=== PATIENT | female | born 2000 | race Caucasian/White ===

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

== ENCOUNTER 2021-01-29 11:25 | Emergency (ER) | payer OTHER, SELFPAY ==
[~2021-01-29] VITALS: Ht 177.8 cm; Wt 140.5 kg
[2021-01-29] MEDS ORDERED: NS 1,000 ML IV ONE ×2 (13:00→14:20)
[2021-01-29 13:41] LABS: BASO % 0.6 % (0.0-1.0); EOS # 0.1 10^3/uL (0.0-0.5); EOS % 1.2 % (0.0-3.0); HEMOGLOBIN 14.1 g/dl (12.0-15.5); LYMPH # 1.8 10^3/uL (1.5-5.0); MEAN CORPUSCULAR HEMOGLOBIN 30.1 pg (27.0-33.0); MEAN CORPUSCULAR HGB CONC 32.8 g/dl (32.0-36.5); MEAN CORPUSCULAR VOLUME 91.9 fl (80.0-96.0); MONO # 0.6 10^3/uL (0.0-0.8); MONO % 9.6 % (2.0-8.0); NEUTROPHILS % 61.3 % (36.0-66.0); PLATELET COUNT, AUTOMATED 253 10^3/uL (150-450); RED BLOOD COUNT 4.68 10^6/uL (4.00-5.40); WHITE BLOOD COUNT 6.5 10^3/uL (4.0-10.0)
[2021-01-29 14:04] LABS: AMPHETAMINES LEVEL URINE NEGATIVE (NEGATIVE); BARBITURATES URINE NEGATIVE (NEGATIVE); BENZODIAZEPINES URINE NEGATIVE (NEGATIVE); CANNABINOIDS URINE NEGATIVE (NEGATIVE); COCAINE METABOLITE URINE NEGATIVE (NEGATIVE); METHADONE URINE NEGATIVE (NEGATIVE); OPIATES URINE NEGATIVE (NEGATIVE); PHENCYCLIDINE URINE NEGATIVE (NEGATIVE)
[2021-01-29 14:11] LABS: HCG, SERUM QUALITATIVE NEGATIVE (NEGATIVE)
[2021-01-29 14:13] LABS: BLOOD UREA NITROGEN 13 MG/DL (7-18); CALCIUM LEVEL 8.8 MG/DL (8.5-10.1); CARBON DIOXIDE LEVEL 27 MEQ/L (21-32); CHLORIDE LEVEL 110 MEQ/L (98-107); CREATININE FOR GFR 0.61 MG/DL (0.55-1.30); FREE T4 0.92 NG/DL (0.78-1.33); GLUCOSE, FASTING 87 MG/DL (70-100); SODIUM LEVEL 139 MEQ/L (136-145)
--- NOTE | 2021-01-29 14:35 | REPVR ---
PROCEDURE INFORMATION: Exam: CT Head Without Contrast Exam date and time: 01/29/2021 2:17 PM Age: 20 years old Clinical indication: Dizziness; Additional info: Dizziness, balance off TECHNIQUE: Imaging protocol: Computed tomography of the head without contrast. Radiation optimization: All CT scans at this facility use at least one of these dose optimization techniques: automated exposure control; mA and/or kV adjustment per patient size (includes targeted exams where dose is matched to clinical indication); or iterative reconstruction. COMPARISON: No relevant prior studies available. FINDINGS: Brain: No acute intracranial hemorrhage, cerebral edema, or midline shift. Cerebral ventricles: No hydrocephalus. Bones/joints: No acute fracture. Paranasal sinuses: There is a mucus retention cyst or polyp within the left maxillary sinus. Mastoid air cells: The mastoid air cells are clear. Orbital cavity: Unremarkable as visualized. Soft tissues: Unremarkable. IMPRESSION: No acute intracranial abnormality. Electronically signed by: Reinaldo Martel On 01/29/2021 14:34:50 PM
[2021-01-29 15:47] VITALS: BP 104/58
--- NOTE | 2021-01-30 07:38 | ECGEPIP ---
[facility] - ED Test Date: 2021-01-29 Pat Name: HECTOR FREDERICK Department: Room: - Gender: Female Service Girl: RS : 2000 Requested By: COLE Aguirre PA-C Order Number: [id number] Reading MD: Osmani Jang Measurements Intervals [place] Rate: 45 P: 40 AK: 152 QRS: 69 QRSD: 88 T: 35 QT: 454 QTc: 392 Interpretive Statements Sinus bradycardia BENIGN EARLY REPOLARIZATION NO PRIORS FOR COMPARISON Electronically Signed on 01-30-2021 7:38:43 EDT by Osmani Jang
== END 2021-01-29 15:50 | disposition home or self-care (01) ==
LOC: EDBD 11:25 → M ED 11:25
DX: E86.0 Dehydration (principal); R42 Dizziness and giddiness; R00.1 Bradycardia, unspecified

== ENCOUNTER 2021-07-19 23:05 | Emergency (ER) | payer SELFPAY ==
[~2021-07-19] VITALS: Ht 180.3 cm; Wt 109.1 kg
[~2021-07-19 23:05] MED LIST changes: +OMEP40CA4 PO; -OMEP40CA97 PO
--- OUTSIDE RECORDS SUMMARY | 2021-07-19 23:15 | CCD ---
Author Author [facility] Organization [facility] Address Unknown Phone Unavailable Care Team Providers Care Digital Cartographic Technician Name Role Phone NO, PCP Unavailable Unavailable KEYUR, Pat ENCARNACION MD Unavailable Unavailable KEYUR, Pat ENCARNACION MD Unavailable Unavailable KEYUR, L SHASHANK MD Unavailable Unavailable KEYUR, L SHASHANK MD Unavailable Unavailable KEYUR, L SHASHANK MD Unavailable Unavailable KEYUR, L SHASHANK MD Unavailable Unavailable KEYUR, L SHASHANK MD Unavailable Unavailable KEYUR, L SHASHANK MD Unavailable Unavailable KEYUR, L SHASHANK MD Unavailable Unavailable KEYUR, L SHASHANK MD Unavailable Unavailable KEYUR, L SHASHANK MD Unavailable Unavailable KEYUR, L SHASHANK MD Unavailable Unavailable KEYUR, L SHASHANK MD Unavailable Unavailable KEYUR, L SHASHANK MD Unavailable Unavailable KEYUR, L SHASHANK MD Unavailable Unavailable KEYUR, L SHASHANK MD Unavailable Unavailable KEYUR, L SHASHANK MD Unavailable Unavailable KEYUR, L SHASHANK MD Unavailable Unavailable KEYUR, L SHASHANK MD Unavailable Unavailable KEYUR, L SHASHANK MD Unavailable Unavailable Re-disclosure Warning The records that you are about to access may contain information from federally-assisted alcohol or drug abuse programs. If such information is present, then the following federally mandated warning applies: This information has been disclosed to you from records protected by federal confidentiality rules (42 CFR part 2). The federal rules prohibit you from making any further disclosure of this information unless further disclosure is expressly permitted by the written consent of the person to whom it pertains or as otherwise permitted by 42 CFR part 2. A general authorization for the release of medical or other information is NOT sufficient for this purpose. The Federal rules restrict any use of the information to criminally investigate or prosecute any alcohol or drug abuse patient.The records that you are about to access may contain highly sensitive health information, the redisclosure of which is protected by Article 27-F of the [place] Public Health law. If you continue you may have access to information: Regarding HIV / AIDS; Provided by facilities licensed or operated by the [place] Office of Mental Health; or Provided by the [place] Office for People With Developmental Disabilities. If such information is present, then the following [place] mandated warning applies: This information has been disclosed to you from confidential records which are protected by state law. State law prohibits you from making any further disclosure of this information without the specific written consent of the person to whom it pertains, or as otherwise permitted by law. Any unauthorized further disclosure in violation of state law may result in a fine or mcc sentence or both. A general authorization for the release of medical or other information is NOT sufficient authorization for further disc losure. Allergies and Adverse Reactions Type Description Substance Reaction Status Data Source(s ) No Known Drug Allergies No Known Drug Allergies [facility] Encounters Encounter Providers Location Date Indications Data Source(s ) Emergency Attender: SHASHANK BAER MDConsultant: PCP NO 05/23/2021 07:36:00 PM EDT - 05/24/2021 02:48:00 AM EDT [facility] Patient discharged. Medications No Information Insurance Providers Payer name Policy type / Coverage type Policy ID Covered democrat ID Covered democrat's relationship to knott Policy Knott Plan Information Medicaid S [id number] S [id number] Managed Care - Community Plan [facility] P [id number] S [id number] [facility] Care - [facility] Plan [facility] P [id number] S [id number] [place] [id number] SP [id number] [facility] [id number] S [id number] [facility] [id number] SP [id number] [facility] Care - [facility] S UNAVAILABLE S UNAVAILABLE PRIVATE PAY [id number] SELF PAY ONLY [id number] SP [id number] MARIA A [facility] [place] [id number] SP [id number] Problems, Conditions, and Diagnoses Code Display Name Description Problem Type Effective Dates Data Source(s) [id number] Nicotine dependence, other tobacco produ ct, uncomplicated Nicotine dependence, other tobacco product, uncomplicated Diagnosis 05/23 07:36:00 PM EDT [facility] [id number] Migraine, unspecified, not intractable, without status migrainosus Migraine, unspecified, not intractable, without status migrainosus Diagnosis 05/23/2021 07:36:00 PM EDT [facility] R519 Headache, unspecified Headache, unspecified Diagnosis 05/23/2021 07:36:00 PM [facility] Surgeries/Procedures No Information Results ID Date Data Source [id number] [facility] [address] [place] [address] PHONE: [phone] FAX: [phone] Name .................. : OTONIEL Szymanski Acct Number.................. : [id number] ROOM. ................. : TR-08 MR Number ................... : [id number] Stay type ............. : E/R Discharge Date......... ... : 05/24/21 Admit Date ....... .. : 05/23/21 Admit Phys .................... : COONEYNORM Date of ....... : 2000 Family Phys ................... : NO PCP Phone .................. : [phone] Age ................................ : 20 Film# .................. .:[id number] Sex ................................. : F Unsigned transcriptions are preliminary reports and do not represent a medical or legal document CHEST PORTABLE [id number] COMPLETE:05/24/21 04:25 MWB 53185 Reason(s): Congestion PORTABLE CHEST SINGLE VIEW 12:25 AM HISTORY: Congestion COMPARISON: None. FINDINGS: Mediastinal and hilar structures are normal. Cardiac silhouette is unremarkable. Lungs are clear. No pulmonary edema. No pleural effusions or pneumothorax. IMPRESSION: Normal exam. Electronically Reviewed and Signed By Jeff Jacobs MD , 05/25/21 15:42, SCB Transcribe Initials: SSR, Transcribe Date: 05/24/21 08:00, Dictation Date: Copy for: EMERGENCY DEPT via modem Copy for: 710 MED REC DISCHARGED Page 1 of 1 Name Value Range Interpretation Code Description Data Deedee rce(s) Supporting Document(s) ID Date Data Source [id number] 05/25/2021 03:41:00 [place] [address] PHONE: [phone] FAX: [phone] Name .................. : OTONIEL Szymanski Acct Number.................. : [id number] ROOM. ................. : TR-08 MR Number ................... : [id number] Stay type ............. : E/R Discharge Date......... ... : Admit Date ......... : 05/23/21 Admit Phys .................... : KEYURNORM Date of ....... : 2000 Family Phys ................... : NO PCP Phone .................. : [phone] Age ................................ : 20 Film# .................. .:[id number] Sex ................................. : F Unsigned transcriptions are preliminary reports and do not represent a medical or legal document CT HEAD W/O CONTRAST [id number] COMPLETE:05/23/21 19:48 Reason(s): Headache CT BRAIN WITHOUT IV CONTRAST INDICATION: Headache COMPARISON: None CONTRAST: None Preliminary report for this exam was provided by [facility]. One or more of the following dose reduction techniques were utilized in effectively lowering the radiation dose for this examination: Automated Exposure Control, Adjustment of the mA and/or kV according to patient size, or Iterative Reconstruction. FINDINGS: Ventricles and sulci are normal in appearance. Borja white differentiation is intact. No extra-axial collection or intracranial hemorrhage. No indication of acute or prior ischemic CVA. No mass or mass effect. Calvarium and skull base are within normal limits. To the extent included sinuses are clear. IMPRESSION: Negative study. Electronically Reviewed and Signed By Jeff Jacobs MD , 05/25/21 15:41, SCB Transcribe Initials: CHERRI , Transcribe Date: 05/23/21 23:01, Dictation Date: Page 1 of 2 [facility] [address] [place] [id number] PHONE: [phone] FAX: [phone] Name .................. : OTONIEL Szymanski Acct Number.................. : [id number] ROOM. ................. : TR-08 MR Number ................... : [id number] Stay type ............. : E/R Discharge Date......... ... : Admit Date ......... : 05/23/21 Admit Phys .................... : COONEYNORM Date of ....... : 2000 Family Phys ................... : NO PCP Phone .................. : [phone] Age ................................ : 20 Film# .................. .:[id number] Sex ................................. : F Unsigned transcriptions are preliminary reports and do not represent a medical or legal document CT HEAD W/O CONTRAST 98131 COMPLETE:05/23/21 19:48 Reason(s): Headache Copy for: EMERGENCY DEPT via mode Copy for: 710 MED REC DISCHARGED Page 2 of 2 Name Value Range Interpretation Code Description Data Deedee rce(s) Supporting Document(s) ID Date Data Source [id number] 05/23/2021 07:36:00 PM EDT [facility] 1 OrderSheet [facility] Emergency Department [address] [place] [address] Phone #: ext- [phone] 05/23/2021 19:35 Patient: HECTOR FREDERICK Sex: F : 2000 Age: 20yWEIGHT:158.7 kg (S) HEIGHT:71 inches (S) BMI:48.8ALLERGIES: No Known Drug AllergyCHIEF COMPLAINT: headacheDIAGNOSIS: MigraineLAB ORDERSOrder Description Priority Entered Acknowledged InitialedCBC w Diff STAT 19:48 05/23/2021 20:00 Shashank Gonzalez MD; Rey RNCMP STAT 19:48 05/23/2021 20:00 Shashank Gonzalez MD; Rey QUINONESHCG Serum Qual STAT 19:48 05/23/2021 20:00 Shashank Gonzalez MD; Rey RNUrinalysis (Clean STAT 19:48 05/23/2021 Ack'd: 22:29Catch) Shashank Baer MD; Laurie Ballard R.N.Magnesium STAT 19:48 05/23/2021 20:00 Shashank Gonzalez MD; Rey QUINONESUrine Drug Screen STAT 23:31 05/23/2021 00:07 05/24/2021 Shashank Baer MD; Laurie Ballard R.N.ETOH STAT 23:31 05/23/2021 Ack'd: 00:07 00:08 05/24/2021 Shashank Baer MD; 05/24/2021 Laurie Blalard Laura R.N. RHonorioNHonorioDIAGNOSTIC STUDY ORDERSOrder Description Priority Entered Acknowledged InitialedCT Head W/O Cont STAT 19:48 05/23/2021 20:00 [place](Oxygen?(No)) Shashank Baer MD; Rye QUINONES Reason for Study: HeadacheChest Portable 1 STAT 00:03 05/24/2021 00:07 Crystal Ballard Norma MD; Laurie Witt(Oxygen?(No)) Reason for Study: Congestion 2 OrderSheet [facility] Emergency Department [address] [place] [address] Phone #: ext- [phone] 05/23/2021 19:35 [id number] Sex[facility] : 2000 Age: 20yMEDICATION/IV/DRIP/FLUID ORDERSOrder Description Priority Entered Acknowledged InitialedIV NS 1000 mL 19:50 05/23/2021 20:12 GlenroyBolus : Bolus 1000 Shashank Baer MD; Rey RNmL (X1)Zofran IVP 4 mg 19:50 05/23/2021 20:12 Shashank Gonzalez MD; Rey RNToradol IVP 30 mg 19:50 05/23/2021 20:13 [place](NOW x1) Shashank Baer MD; Rey RNBenadryl IVP 25 mg 19:50 05/23 20:14 Shashank Gonzalez MD; Rey RNReglan IVP 10 mg 19:50 05/23/2021 20:13 Shashank Gonzalez MD; Rey RNDexamethasone 19:50 05/23/2021 20:13 GlenroyIVP 10 mg (NOW Shashank Baer MD; Rey RNx1)IV NS 1000 mL 21:58 05/23/2021 22:10 Joanne,Bolus : Bolus 1000 Shashank Baer MD; Myriam WittmL (X1)IV NS 1000 mL 22:28 05/23/2021 Ack'd: 22:29 00:17 05/24/2021olus : Bolus 1000 Shashank Baer MD; Laurie Ballard LauramL (X1) R.N. R.NHonorioGENERAL ORDERSOrder Description Priority Entered Acknowledged Initialed[Electronically signed by Myriam Rubio R.N. (02:48 05/24/2021)][Electronically signed by Shashank Baer MD (02:48 05/24/2021)][Electronically locked by Myriam Rubio R.N. (02:48 05/24/2021)] Name Value Range Interpretation Code Description Data Deedee rce(s) Supporting Document(s) ID Date Data Source [id number] 05/23/2021 07:36:00 PM EDT [facility] 1 Medication Reconciliation Report [facility] Emergency Department [address] [place] [address] Phone #: ext- [phone] 05/23/2021 19:35 Patient: HECTOR FREDERICK Sex: F : 2000 Age: 20yWeight: 158.7 kgHeight/Length: 71 in.BMI: 48.8ALLERGIES: No Known Drug AllergyThe patient's Home Medications are listed below:CONTINUE TAKING THE FOLLOWING MEDICATIONS: Omeprazole Oral, unknown doseThe source(s) of the original Home Medication information:Not obtained.The following Medications were given to the patient in the Emergency Department:NS [IV] IV Fluids bolus 0, then 1000 mL/hr, administered: 20:12 05/23/2021Zofran [IVP] IVP 4 mg, administered: 20:05/23/2021Toradol [IVP] IVP 30 mg, administered: 20:1Reglan [IVP] IVP 10 mg, administered: 20:1Dexamethasone [IVP] IVP 10 mg, administered: 20:1Benadryl [IVP] IVP 25 mg, admini stered: 20:14 05/23/2021NS [IV] IV Fluids bolus 0, then 1000 mL/hr, administered: 22:05/23/2021NS [IV] IV Fluids bolus 0, then 1000 mL/hr, administered: 22:05/23/2021odium Chloride [IV] IV Fluids bolus 0, then 1000 mL/hr, administered: 00:17 05/24/2021The following Medications were prescribed to the patient:None. Name Value Range Interpretation Code Description Data Deedee rce(s) Supporting Document(s) ID Date Data Source [id number] 05/23/2021 07:36:00 PM EDT [facility] 1 Medication Administration Record [facility] Emergency Department [address] [place] [address] Phone #: ext- [phone] 05/23/2021 19:35 Patient: HECTOR FREDERICK Sex: F : 2000 Age: 20yWeight: 158.7 kgHeight/Length: 71 inBMI: 48.8ALLERGIES: No Known Drug Allergy Date/Time Medication Administered Medication OrderedStart NS [IV] IV NS 1000 mL Bolus : Bolus [id number]:12 05/23/2021 Dose: IV Fluids mL (X1)Glenroy Le RN Rate: 1000 mL/hr over 1 hour(s)---- Dispensed: 1000 mL bagStop Site: #1 left AC22:02 1PChari Regalado NS [IV] IV NS 1000 mL Bolus : Bolus [id number]:02 05/23/2021 Dose: IV Fluids mL (X1)Glenroy Le RN Rate: 1000 mL/hr over 1 hour(s)---- Dispensed: 1000 mL bagStop Site: #1 left AC23:47 1LMyriam alegre R.N.Given ZOFRAN [IVP] (ONDANSETRON HCL) Zofran IVP 4 mg20:12 05/23/2021 Dose: 4 mg IVPPtal Le RN Site: #1 left ACGiven TORADOL [IVP] (KETOROLAC Toradol IVP 30 mg (NOW x1)20:13 05/23/2021 TROMETHAMINE)Glenroy Le RN Dose: 30 mg IVP Site: #1 left ACGiven BENADRYL [IVP] (DIPHENHYDRAMINE Benadryl IVP 25 mg20:14 05/23/2021 HCL)Glenroy Le RN Dose: 25 mg IVP Site: #1 left ACGiven REGLAN [IVP] (METOCLOPRAMIDE Reglan IVP 10 mg20:13 05/23/2021 HCL)Glenroy Le RN Dose: 10 mg IVP Site: #1 left ACGiven DEXAMETHASONE [IVP] Dexamethasone IVP 10 mg (NOW20:13 05/23/2021 Dose: 10 mg IVP x1)Glenroy Le RN Site: #1 left ACStart NS [IV] IV NS 1000 mL Bolus : Bolus [id number]:10 05/23/2021 Dose: IV Fluids mL (X1)Myriam Rubio RNilesh Rate: 1000 mL/hr over 1 hour(s)---- Dispensed: 1000 mL bagStop Site: #1 left AC00:16 05/24/2021Laurie Ballard R.N.Start SODIUM CHLORIDE [IV] IV NS 1000 mL Bolus : Bolus [id number]:17 05/24/2021 Dose: IV Fluids mL (X1)Laurie Ballard R.N. Rate: 1000 mL/hr over 1 hour(s)---- Dispensed: 1000 mL bagStop Site: #1 left AC 2 Medication Administration Record [facility] Emergency Department [address] [place] [address] Phone #: ext- [phone] 05/23/2021 19:35 Patient: HECTOR FREDERICK Sex: F : 2000 Age: 20y01:24 1LofMyriam barr R.N. Name Value Range Interpretation Code Description Data Deedee rce(s) Supporting Document(s) ID Date Data Source [id number] 05/23/2021 07:36:00 PM EDT [facility] 1 General Instructions [facility] Emergency Department [address] [place] [address] Phone #: ext- [phone] 05/23/2021 19:35 Patient: HECTOR FREDERICK Sex: F : 2000 Age: 20yAcute migraine headache.INSTRUCTIONSDo not work for two days.(return if worse or any new symptoms. Take all medications as previously instructed. You may taketylenol and motrin for pain.).Warnings: Further evaluation is necessary.GENERAL WARNINGS: Return or contact your physician immediately if your condition worsens orchanges unexpectedly, if not improving as expected, or if other problems arise.Your Current Medications: Your current home medications have been reviewed.CONTINUE TAKING THE FOLLOWING MEDICATIONS:Omeprazole Oral : unknown dose.Follow-up:Follow up with your doctor Thursday even if well. Call for an appointment. Reason for referral: evaluation.Summary of care provided to patient via paper.Understanding of the discharge instructions verbalized by patient. ADDITIONAL INFORMATIONMigraine HeadacheA migraine headache is an often severe type of headache. It's different from other types ofheadaches in that symptoms other than pain occur with the it. For instance, a classic migraineheadache means visual symptoms (or aura) such as flashes of light, blind spots or other visionchanges, warns you a headache is coming on. Nausea and vomiting, lightheadedness, sensitivity tolight or sound, and other visual disturbances are common migraine symptoms. The pain may lastfrom a few hours to several days. It's not clear why migraines occur, but certain factors called triggerscan raise the risk of having a migraine attack. A migraine may be triggered by emotional stress ordepression, or by hormone changes during the menstrual cycle. Other triggers include certain birthcontrol pills, overuse of migraine medicines, alcohol or caffeine, foods with tyramine such as agedcheese and wine, eyestrain, weather changes, missed meals, or too little or too much sleep. 2 General Instructions [facility] Emergency Department [address] [place] [address] Phone #: ext- [phone] 05/23/2021 19:35 Patient: HECTOR FREDERICK Sex: F : 2000 Age: 20yHome careFollow these tips when taking care of yourself at home: Don't drive yourself home if you were given pain medicine for your headache or are having visual symptoms. Instead, have someone else drive you home. Try to sleep when you get home. You should feel much better when you wake up. Cold can help ease migraine symptoms. Put an ice pack wrapped in a thin towel on your forehead or at the base of your skull. Put heat on the back of your neck to help ease any neck spasm. Drink only clear liquids or eat a light diet until your symptoms get better. This will help you prevent nausea and vomiting.How to prevent migrainesPay attention to what seems to trigger your headache. Try to stay away from the triggers when youcan. If you have headaches often, consider keeping a headache diary. In it, write down what youwere doing, feeling, or eating in the hours before each headache. Show this to your healthcareprovider to help find the cause of your headaches.If stress seems to be a trigger for your headaches, figure out what is causing stress in your life. Learnnew ways to handle your stress. Ideas include regular exercise, biofeedback, self-hypnosis, yoga,and meditation. Talk with your healthcare provider to find out more information about managingstress. Many books and digital media are also available on this subject.Tyramine is a substance found in many foods. It can trigger a migraine in some people. These foodscontain tyramine: Chocolate Yogurt All cheeses, but especially aged cheeses Smoked or pickled fish and meat, including welch, caviar, bologna, pepperoni, and salami Liver Avocados Bananas Figs Raisins 3 General Instructions [facility] Emergency Department [address] [place] [address] Phone #: ext- [phone] 05/23/2021 19:35 [id number] Sex[facility] : 2000 Age: 20y Red wineTry staying away from these foods for 1 to 2 months to see if you have fewer headaches.How to treat future headaches Take time out at the first sign of a headache, if possible. Find a quiet, dark, comfortable place to sit or lie down. Let yourself relax or sleep. Put an ice pack wrapped in a thin towel on your forehead or on the area of greatest pain. A heating pad and massage may help if you are having a muscle spasm and tightness in your neck. If you have been prescribed a medicine to stop a migraine headache, use this at the first warning sign of the headache for best results. First signs may be an aura or pain. If you have been prescribed a medicine to prevent the headaches, it's important to take the medicine as directed. Many of these medicines may take a few weeks to start preventing headaches, so it's important to not give up on them right away. If you continue to have just as many headaches after taking these medicines for a while, talk with your doctor to see if the dose needs to be changed or if a different medicine is advised. If you need to take medicine often for your migraine, talk with your healthcare provider about other ways to prevent your headaches.Follow-up careFollow up with your healthcare provider, or as advised. Talk with your provider if you have frequentheadaches. He or she can figure out a treatment plan. Ask if you can have medicine to take at homethe next time you get a bad headache. This may keep you from having to visit the emergencydepartment in the future. You may need to see a headache specialist (neurologist) if you continue tohave headaches.When to seek medical adviceCall your healthcare provider right away if any of these occur: Your head pain gets worse, or doesn't get better within 24 hours You can't keep liquids down (repeated vomiting) Pain in your sinuses, ears, or throat Fever of 100.4 F (38 C) or higher, or as directed by your healthcare provider Stiff neck 4 General Instructions [facility] Emergency Department [address] [place] [address] Phone #: ext- [phone] 05/23/2021 19:35 Patient: HECTOR FREDERICK Sex: F : 2000 Age: 20y Extreme drowsiness, confusion, or fainting Dizziness, or dizziness with spinning sensation (vertigo) Weakness or trouble feeling in an arm or leg, or on one side of your face Trouble talking or seeing [id number] [employer] [place] [address]. All rights reserved. This information is not intended as asubstitute for professional medical care. Always follow your healthcare professional's instructions. You have been given the following additional information: Headache, Migraine, Classic Do not work for two days.(Electronically signed by Shashank Baer MD 05/24/2021 02:48) Name Value Range Interpretation Code Description Data Deedee rce(s) Supporting Document(s) ID Date Data Source [id number] 05/23/2021 07:36:00 PM EDT [facility] 1 Clinical Report - Nurses [facility] Emergency Department [address] [place] [address] Phone #: ext- [phone] 05/23/2021 19:35 Patient: HECTOR FREDERICK Sex: F : 2000 Age: 20yTRIAGEArrived by private vehicle. Historian: patient. Accompanied by friend.Acuity: LEVEL 3.Chief Complaint: HEADACHE and MIGRAINE HEADACHE.This started 3 hours ago. ( pt states she has had a history of headaches and was just sitting at hometoday and she then got another headache and has not gotten any better despite taking Advil).Treatment [employer]:(advil 1730).SEPSIS SCREEN: SIRS SCREEN NEGATIVE. SEPSIS SCREEN NEGATIVE. No suspected or confirmedsigns of infection present.KULDEEP COMA SCORE: 15- eyes open- spontaneous (4); best verbal response- oriented (5); bestmotor response- obeys commands (6). --19:51 05/23/21 Glenroy Le RN19:44 05/23/21. BP: 111/77. MAP: 88. HR: 63. RR: 16. O2 saturation: 100%. Temp: 97.8 F. Pain levelnow: 01/28. --19:51 05/23/21 Glenroy Le RN.Weight: 158.7 kg stated. Height/Length: 71 inches Per Patient. BMI: 48.8. --19:43 05/23/21 Glenroy Le RN.MedicationsOmeprazole Oral (unknown dose). --19:48 05/23/21 Glenroy Le RN.AllergiesNo Known Drug Allergy. --19:48 05/23/21 Glenroy Le RN.PROBLEMS:Gastroesophageal Reflux Disease. --19:48 05/23/21 Glenroy Le RN.ADDITIONAL SURGERIES:Cholecystectomy. --19:48 05/23/21 Glenroy Le RN.HistoryPAST MEDICAL HX: Immunizations: up-to-date. Last normal menstrual period- 1 years ago.SOCIAL HX: Smoker- current status unknown (vapes). No alcohol use or drug use. No recent travel.No known contact with a sick individual. She was offered HIV testing but declined and hepatitis C testing 2 Clinical Report - Nurses [facility] Emergency Department [address] [place] [address] Phone #: ext- [phone] 05/23/2021 19:35 Patient: HECTOR FREDERICK Sex: F : 2000 Age: 20y but declined. She has not traveled outside the [place] Infectious disease exposure: No infectious disease exposure. The patient was not exposed to Coronavirus. SELF HARM ASSESSMENT: Self harm assessment was performed. The patient answered "no" to the question(s) "Have you recently felt down, depressed, or hopeless?", "Do you have thoughts of harming or killing yourself?", "Do you have a plan for harming or killing yourself?", "Have you recently had thoughts about harming or killing others?", "Do you have any dangerous items in your possession?", "Have you noticed less interest or pleasure in doing things?", "Are you here because you tried to hurt yourself?" and "Have you ever tried to hurt yourself before today?". ABUSE ASSESSMENT: No report of abuse. NUTRITIONAL RISK ASSESSMENT: The nutritional risk assessment r evealed no deficiencies. FUNCTIONAL ASSESSMENT: Functional assessment: no impairments noted. LEARNING NEEDS ASSESSMENT: The learning needs assessment revealed no barriers. FALL RISK ASSESSMENT: Fall risk assessment completed. No risk factors identified. SKIN INTEGRITY ASSESSMENT: Skin integrity risk assessment completed. No skin integrity risk identified. --19:51 05/23/21 Glenroy Le RN. Interventions Identification band on patient. To treatment room. --19:51 05/23/21 Glenroy Le RN.PHYSICAL ASSESSMENTAmbulatory to room.GENERAL / NEURO / PSYCH: Alert. Oriented X 4. Appears in pain. Speech within normal limits.HEENT: No facial asymmetry noted. Photophobia present. Pupils equal, round and reactive to light. ( ptvoices her headache is behind her left eye).RESPIRATORY: Respirations not labored. Breath sounds within normal limits.CVS: Capillary refill less than 2 seconds.GI / : The patient has had nausea. Emesis noted. Abdomen soft and nontender.SKIN: Skin is warm and dry. --19:52 05/23/21 Glenroy Le RN.NURSING PROGRESS NOTESNIBP monitor and pulse oximeter placed on patient; monitor alarms on. Patient gowned. Head of bedelevated. Reassurance given. Lights dimmed. Call light placed in reach. Side rails up x 2. Bedplaced in lowest position. Brakes of bed on. Patient ready for evaluation- ED physician notified. --19:5305/23/21 Glenroy Le RN 20:00 05/23/2021 Site #1 started via IV in the left antecubital space with an 20g angiocath, with aseptic technique and good blood return; one attempt. Saline lock flushed with 10 mL saline. --20:00 05/23/21 Glenroy Stewart Clinical Report - Nurses [facility] Emergency Department [address] [place] [address] Phone #: ext- [phone] 05/23/2021 19:35 Patient: HECTOR FREDERICK Sex: F : 2000 Age: 20JONI Marquez20:12 05/23/2021 Started bag #1 1000 mL IV Fluids NS; at 1000 mL/hr over 1 hour(s) via site #1 via IVpump. Allergies verified and confirmed 5 rights. IV patency established. IV site checked: no pain, redness,or swelling. IV flushed thoroughly pre- and post-medication administration. Information reviewed withpatient including reason for taking this medication. Verbalizes understanding. --20:05/23/21 JONI Sage20:12 05/23/2021 Zofran (Ondansetron HCl) IVP 4 mg given over 2 minute(s) via site #1. Allergies verifiedand confirmed 5 rights. IV patency established. IV site checked: no pain, redness, or swelling. IV flushedthoroughly pre- and post-medication administration. IVP given by RN. Information reviewed with patientincluding reason for taking this medication. Verbalizes understanding. --20:05/23/21 Glenroy Le RN20:13 05/23/2021 Toradol (Ketorolac Tromethamine) IVP 30 mg given over 3 minute(s) via site #1.Allergies verified and confirmed 5 rights. IV patency established. IV site checked: no pain, redness, orswelling. IV flushed thoroughly pre- and post- medication administration. IVP given by RN. Informationreviewed with patient including reason for taking this medication. Verbalizes understanding (diluted in 10 mlof nacl). --20:13 05/23/21 Glenroy Le RN20:13 05/23/2021 Reglan (Metoclopramide HCl) IVP 10 mg given over 3 minute(s) via site #1. Allergiesverified and confirmed 5 rights. IV patency established. IV site checked: no pain, redness, or swelling. IVflushed thoroughly pre- and post- medication administration. IVP given by RN. Information reviewed withpatient including reason for taking this medication. Verbalizes understanding (diluted in 10 ml of nacl).--20:13 05/23/21 Glenroy Le RN20:13 05/23/2021 Dexamethasone IVP 10 mg given over 2 minute(s) via site #1. Allergies verified andconfirmed 5 rights. IV patency established. IV site checked: no pain, redness, or swelling. IV flushedthoroughly pre- and post-medication administration. IVP given by RN. Information reviewed with patientincluding reason for taking this medication. Verbalizes understanding. --20:13 05/23/21 Glenroy Le RN20:14 05/23/2021 Benadryl (diphenhydrAMINE HCl) IVP 25 mg given over 1 minute(s) via site #1. Allergiesverified and confirmed 5 rights. IV patency established. IV site checked: no pain, redness, or swelling. IVflushed thoroughly pre- and post- medication administration. IVP given by RN. Information reviewed withpatient including reason for taking this medication and sedative warning. Verbalizes understanding.--20:14 05/23/21 Glenroy Le RN20:55 05/23/21. BP: 102/46. MAP: 64. HR: 51. RR: 16. O2 saturation: 97%. Pain level now: 09/30.--20:56 05/23/21 Glenroy Le RN22:00 05/23/21. BP: 102/62. MAP: 75. HR: 71. RR: 16. O2 saturation: 100%. Pain level now: 10/31.--22:00 05/23/21 Glenroy Le RN22:05/23/2021 Started bag #1 1000 mL IV Fluids NS; at 1000 mL/hr over 1 hour(s) via site #1 via IVpump. Allergies verified and confirmed 5 rights. IV patency established. IV site checked: no pain, redness, 4 Clinical Report - Nurses [facility] Emergency Department [address] [place] [address] Phone #: ext- [phone] 05/23/2021 19:35 Patient: HECTOR FREDERICK Sex: F : 2000 Age: 20yor swelling. IV flushed thoroughly pre- and post-medication administration. Information reviewed withpatient including reason for taking this medication. Verbalizes understanding. --22:05/23/21 JONI Sage22:05/23/2021 IV Fluids NS via IV site #1 Discontinued: bag #1 infused. Total amount infused: 1000 mL.IV patency established. IV site checked: no pain, redness, or swelling. IV flushed thoroughly. --22: Glenroy Le RN22:05/23/2021 Started bag #1 1000 mL IV Fluids NS; at 1000 mL/hr over 1 hour(s) via site #1 via IVpump. Allergies verified and confirmed 5 rights. IV patency established. IV site checked: no pain, redness,or swelling. IV flushed thoroughly pre- and post- medication administration. Information reviewed withpatient including reason for taking this medication. Verbalizes understanding. --22:10 05/23/21 Myriam Rubio R.N.23:46 05/23/21. BP: 93/53. MAP: 66. HR: 61. RR: 14. O2 saturation: 93% on room air. Pain level now:10/31. --23:48 05/23/21 Myriam Rubio R.N.Rounding: Pain: assessed pain level. Position: states comfortable. Personal care / toileting: denies toiletingneeds. Proximity of possessions / care items: call light within easy reach. Plug ins: assured IV pumpplugged in; checked status of equipment in use; located all cords, tubes, and lines to prevent fall hazard.Set expectations: advised patient of rounding protocol timing and asked if they needed anything else at thistime. Overall patient status is improved. ( pt drowsy).GENERAL / NEURO / PSYCH: Alert. Oriented X 4.RESPIRATORY: No respiratory distress.SKIN: Skin is warm and dry. Skin color within normal limits. --23:48 05/23/21 Myriam Rubio R.N.23:47 05/23/2021 IV Fluids NS via IV site #1 Discontinued: infused. Total amount infused: 98045 mL. IVpatency established. IV site checked: no pain, redness, or swelling. IV flushed thoroughly. --02:47 05/24/21Myriam Rubio R.N.00:16 05/24/2021 IV Fluids NS via IV site #1 Discontinued: bag #2 completed. Total amount infused: 1000mL. IV patency established. IV site checked: no pain, redness, or swelling. IV flushed thoroughly. --00: Laurie Ballard R.N.00:17 05/24/2021 Started bag #3 1000 mL IV Fluids Sodium Chloride; at 1000 mL/hr over 1 hour(s) via site#1 via IV pump. Allergies verified and confirmed 5 rights. IV patency established. IV site checked: no pain,redness, or swelling. IV flushed thoroughly pre- and post-medication administration. Information reviewedwith patient. Verbalizes understanding. --00:17 05/24/21 Laurie Ballard RVance.Reassessment after fluids administered. She reports no complaints, she is sleeping and she has had noadverse reaction.GENERAL / NEURO / PSYCH: Alert. Oriented X 4.HEENT: Pupils equal, round and reactive to light.RESPIRATORY: No respiratory distress. 5 Clinical Report - Nurses [facility] Emergency Department [address] [place] [address] Phone #: ext- [phone] 05/23/2021 19:35 Patient: HECTOR FREDERICK Sex: F : 2000 Age: 20y SKIN: Skin is warm and dry. Skin color within normal limits. --01:05/24/21 Myriam Rubio R.N. 01:05/24/21. BP: 116/74. MAP: 88. HR: 68. RR: 15. O2 saturation: 98%. Pain level now: 10/31. --01:05/24/21 Myriam Rubio R.N. 01:05/24/2021 IV Fluids Sodium Chloride via IV site #1 Discontinued: bag #3 completed. Total amount infused: 1000 mL. IV patency established. IV site checked: no pain, redness, or swelling. IV flushed thoroughly. --01:05/24/21 Myriam Rubio R.N. The patient is sleeping. --02:05/24/21 Pat Ballard R.N. 02:05/24/21. BP: 109/71. MAP: 83. HR: 68. RR: 17. O2 saturation: 98% on room air. --02:05/24/21 Laurie Ballard R.N.DISPOSITION / DISCHARGE 02:39 05/24/2021 Site #1 removed upon discharge. Catheter intact. Manual pressure and bandaid applied. --02:39 05/24/21 Myriam Rubio R.N. Condition at departure: improved. No learning barriers present. Discharge instructions provided and reviewed with the patient. Patient verbalized understanding. Written instructions provided in Icelandic. The patient was discharged by the physician. She was discharged home. She left ambulatory and via private vehicle. [employer] driving. --02:39 05/24/21 Myriam Rubio R.N. 02:38 05/24/21. BP: 98/62. MAP: 74. HR: 79. RR: 15. O2 saturation: 100%. Temp: 97.7 F (oral). Pain level now: 010. --02:39 05/24/21 Myriam Rubio R.N.Locked/Released at 05/24/2021 02:48 by Myriam Rubio R.N. Name Value Range Interpretation Code Description Data Deedee rce(s) Supporting Document(s) ID Date Data Source [id number] 05/23/2021 07:36:00 PM EDT [facility] 1 Clinical Report - Physicians/Mid Levels [facility] Emergency Department [address] [place] [address] Phone #: ext- [phone] 05/23/2021 19:35 Patient: HECTOR FREDERICK Sex: F : 2000 Age: 20y Arrived- By private vehicle. Historian- patient. Disposition decision: 02:33 05/24/2021.HISTORY OF PRESENT ILLNESS Chief Complaint: HEADACHE. Is still present. Onset during rest. This started 3 hours. It is described as "pain". Located in the region of the right eye. No neck pain. Not located in the facial region. At its maximum, severity described as moderate. When seen in the E.D., severity described as moderate. The patient has had nausea. No preceding symptoms, blurred vision, photophobia, numbness or weakness. No vomiting. (This started 3 hours ago. ( pt states she has had a history of headaches and was just sitting at home today and she then got another headache and has not gotten any better despite taking Advil). pt states that). No recent travel. Similar symptoms previously. None. Recent medical care: Not recently seen/assessed.REVIEW OF SYSTEMSNo fever, muscle aches, sinus pressure or ear pain or pain. No sore throat or throat, chest pain or pain ordifficulty breathing. No cough, abdominal pain or pain, diarrhea or pain with urination. No skin rash orrash, back pain or pain or chills. No fever, double vision, nasal congestion, cough or difficulty breathing.No nausea, vomiting, urinary frequency, hematuria or seizure. No easy bruising or difficulty with urination.The patient has had a headache.PAST HISTORYSee nurses notes. Problems: Gastroesophageal Reflux Disease. Additional Surgeries: Cholecystectomy. Medica tions: Omeprazole Oral (unknown dose). Allergies: No Known Drug Allergy. 2 Clinical Report - Physicians/Mid Levels [facility] Emergency Department [address] [place] [address] Phone #: ext- [phone] 05/23/2021 19:35 Patient: HECTOR FREDERICK Sex: F : 2000 Age: 20ySOCIAL HISTORYNo drug use.ADDITIONAL NOTESThe nursing notes have been reviewed.PHYSICAL EXAMVital Signs: 05/24/2021 02:29 BP: 109/71. MAP: 83. HR: 68. RR: 17. O2 saturation: 98% on room air.05/24/2021 01:23 BP: 116/74. MAP: 88. HR: 68. RR: 15. O2 saturation: 98%. Pain level now: 10/31.05/23/2021 23:46 BP: 93/53. MAP: 66. HR: 61. RR: 14. O2 saturation: 93% on room air. Pain level now:10/31.05/23/2021 22:00 BP: 102/62. MAP: 75. HR: 71. RR: 16. O2 saturation: 100%. Pain level now: 10/31.05/23/2021 20:55 BP: 102/46. MAP: 64. HR: 51. RR: 16. O2 saturation: 97%. Pain level now: 09/30.05/23/2021 19:44 BP: 111/77. MAP: 88. HR: 63. RR: 16. O2 saturation: 100%. Temp: 97.8 F. Pain levelnow: 5/10. Have been reviewed and appear to be correct. Blood pressure normal. Mean arterialpressure- normal. Heart rate normal. Respiratory rate normal. Temperature normal. Oxygensaturation normal.Appearance: Alert. Patient in mild distress. (secondary to pain).Eyes: Pupils equal, round and reactive to light. (rt eye mild ptosis (chronic)).ENT: Nose normal. Pharynx normal.Neck: Normal inspection. Neck supple.CVS: Normal heart rate and rhythm. Heart sounds normal. Pulses normal.Respiratory: No respiratory distress. Painless inspiration. Breath sounds normal.Abdomen: Soft and nontender.Back: Normal inspection. No CVA tenderness.Skin: Skin warm and dry. Normal skin color. No rash. Normal skin turgor.Extremities: Extremities exhibit normal ROM. No lower extremity edema.Neuro: Oriented X 3. Alert. Mood/affect normal. Speech normal. Cranial nerves normal (as tested).No cerebellar findings. No motor deficit. No sensory deficit.LABS, X-RAYS, AND EKGLaboratory Tests: ETOH: (ERIN: 05/23/2021 19:56) ( [facility] 05/23/[facility] 23:55) Final results Test Result Flag Units (Reference) ALCOHOL <10.0 MG/DL ALCOHOL % 0.00 % (0.00 - 0.01) *FOR MEDICAL PURPOSES ONLY* CBC w Diff: (ERIN: 05/23/2021 19:56) ( [facility] 05/23/2021 20:39) Final results Test Result Flag Units (Reference) CBC W/AUTOMATED DIFF COMPLETE BLOOD COUNT WBC 7.6 10/uL (4.2 - 11.0) RBC 4.24 10/uL (4.20 - 5.40) 3 Clinical Report - Physicians/Mid Levels [facility] Emergency Department [address] [place] [address] Phone #: ext- [phone] 05/23/2021 19:35 [id number] Sex: [facility] : 2000 Age: 20y HEMOGLOBIN 12.6 g/dL (12.0 - 16.0) HEMATOCRIT 38.3 % (37.0 - 47.0) MCV 90.3 fL (81.0 - 101) MCH 29.7 pg (27.0 - 34.0) MCHC 32.9 g/dL (31.0 - 36.0) RDW 12.7 % (11.5 - 14.5) PLATELETS 267 10/uL (150 - 450) MPV 10.0 fL (7.4 - 10.4) NEUT 64.6 % (37.0 - 80.0) LYMPH 24.0 L % (25.0 - 40.0) MONO 9.0 H % (3.0 - 8.0) EOS 1.3 % (0.0 - 7.0) BASO 0.7 % (0.0 - 2.5) %IG 0.4 H % (0.0 - 0.0) %NRBC 0.0 % (0.0 - 0.0) #NEUT 4.93 10/uL (2.00 - 6.90) #LYMPH 1.83 10/uL (0.60 - 3.40) #MONO 0.69 10/uL (0.00 - 0.90) #EOS 0.10 10/uL (0.00 - 0.70) #BASO 0.05 10/uL (0.00 - 0.20) #IG 0.03 10/uL (0.00 - 0.10) #NRBC 0.00 10/uL (0.00 - 0.00) MANUAL DIFF NOT INDICATED RBC MORPH NOT INDICATEDCMP: (ERIN: 05/23/2021 19:56) ( MsgRcvd 05/23/2021 21:02) Final results Test Result Flag Units (Reference) COMPREHENSIVE METABOLIC PANEL COMPREHENSIVE METABOLIC PANEL SODIUM 139 mEq/L (134 - 153) POTASSIUM 3.8 mEq/L (3.6 - 5.0) CHLORIDE 103 mEq/L (98 - 107) CO2 25 MEQ/L (22 - 30) GLUCOSE 89 MG/DL (70 - 99) BUN 22 H MG/DL (7 - 21) CREATININE 0.7 MG/DL (0.7 - 1.5) BUN/CREAT 31 H (8 - 27) TOTAL PROTEIN 6.8 G/DL (6.3 - 8.2) ALBUMIN 4.1 G/DL (3.9 - 5.0) GLOBULIN 2.7 GM/DL (2.4 - 3.2) A/G RATIO 1.5 (0.8 - 2.0) CALCIUM 9.3 MG/DL (8.4 - 10.2) TOTAL BILI <0.7 MG/DL (0.2 - 1.3) ALKALINE PHOS 114 U/L (38 - 126) SGOT/AST 15 U/L (5 - 40) SGPT/ALT 16 U/L (7 - 56) ANION GAP 11.0 mmol/L (8.0 - 16.0) AGE 20 yrs NON- AA GFR >60 mL/min AFR AMER GFR >60 mL/min Male GFR Interprentation 20-49 yrs >60 mL/min Jjogcd52-31 yrs >56 mL/min Normal 60- 69 yrs >49 mL/min Normal 70-79yrs>42 mL/min Normal 80 and above >35 mL/min Normal Female GFRInterpretation 20-39 yrs >60 mL/min Normal 40-49 yrs >58 mL/minNormal 50-59 yrs >51 mL/min Normal 60-69 yrs >45 mL/min Qscqll12-32 yrs >39 mL/min Normal 80 and above >32 mL/min NormalBeta-HCG, Qual Serum: (ERIN: 05/23/2021 19:56) ( MsgRcvd 05/23/2021 20:52) Final results 4 Clinical Report - Physicians/Mid Levels [facility] Emergency Department [address] [place] [address] Phone #: ext- [phone] 05/23/2021 19:35 Patient: HECTOR FREDERICK Sex: F : 2000 Age: 20y Test Result Flag Units (Reference) HCG SERUM QUAL NEGATIVE (NORMAL: NEGAT HCG SERUM QL REENTER NEGATIVE (NORMAL: NEGAT { KIT LOT # [id number] ){ KIT EXP DATE09/20/22 ){ PROCEDURAL CONTROL VALID)Magnesium: (ERIN: 05/23/2021 19:56) ( MsgRcvd 05/23/2021 21:02) Final results Test Result Flag Units (Reference) MAGNESIUM 2.1 MG/DL (1.7 - 2.2)CT Head W/O Cont: (ERIN: 05/23/2021 19:48) ( MsgRcvd 05/23/2021 23:32) In Progress Exam [place] [address] PHONE: [phone] FAX: [phone] Name .................. : OTONIEL Szymanski Acct Number.................. : [id number] ROOM. ................. : TR08 MR Number ................... : [id number] Stay type ............. : E/R Discharge Date......... ... : Admit Date ......... : 05/23/21 Admit Phys .................... : COONEYNORM Date of ....... : 2000 Family Phys ................... : NO PCP Phone ....... ........... : [phone] Age ................................ : 20 Film# .................. .:[id number] Sex ................................. : F Unsigned transcriptions are preliminary reports and do not represent a medical or legal document CT HEAD W/O CONTRAST [id number] COMPLETE:05/23/21 19:48 Reason(s): Headache CT BRAIN WITHOUT IV CONTRAST INDICATION: Headache COMPARISON: None CONTRAST: None Preliminary report for this exam was provided by [facility]. One or more of the following dose reduction techniques were utilized in effectively lowering the radiation dose for this examination: Automated Exposure Control, Adjustment of the mA and/or kV according to patient size, or Iterative Reconstruction. FINDINGS: Ventricles and sulci are normal in appearance. Borja white differentiation is intact. No extra-axial collection or intracranial hemorrhage. No indication of acute or prior ischemic CVA. No mass or mass effect. Calvarium and skull base are within normal limits. To the extent included sinuses are clear. IMPRESSION: Negative study. 5 Clinical Report - Physicians/Mid Levels [facility] Emergency Department [address] [place] [address] Phone #: ext- [phone] 05/23/2021 19:35 Patient: HECTOR FREDERICK Sex: F : 2000 Age: 20y Electronically Reviewed and Signed By DCTJABIER , SIGNDATE, SCB Transcribe Initials: CHERRI , Transcribe Date: 05/23/21 23:01, Dictation Date: Page 1 of [address] [place] [address] PHONE: [phone] FAX: Name .................. : OTONIEL Szymanski Acct Number.................. : [id number] ROOM. ................. : [facility] MR Number ................... : [id number] Stay type ............. : E/R Discharge Date......... ... : Admit Date ......... : 05/23/21 Admit Phys .................... : COONEYNORM Date of ....... : 2000 Family Phys ................... : NO PCP Phone .................. : [phone] Age .......... ...................... : 20 Film# .................. .:[id number] Sex ................................. : F Unsigned transcriptions are preliminary reports and do not represent a medical or legal document CT HEAD W/O CONTRAST [id number] COMPLETE:05/23/21 19:48 Reason(s): Headache <<REPDIST>> Page 2 of 2.PROGRESS AND PROCEDURESCourse of Care: pt is a 20 year old female who suffers migraines. she states that this is not like hertypical migraines. she denies any trauma. on evaulation, she is non-toxic, however, she looksuncomfortable. ct head was unremarkable. labs were grossly nl. she is not . she was givenIVF, iv benadryl, iv reglan, iv decadron. her bp did drop. pt states that her and her mother have typicallylow bp and her bp is very sensitive to medications. pt took a nap. she awoke and felt significantly better.her headache had resolved. pt gien 2 days off work and encouraged to f/u with pcp. Critical care performed (35 minutes). Time is exclusive of separately billable procedures. Time includes: direct patient care, patient reassessment, interpretation of data (laboratory data and chest xrays) and medical consultation- see progress notes. Procedures included in critical care time: peripheral IV placement- see progress notes. Patient/family counseled. 6 Clinical Report - Physicians/Mid Levels [facility] Emergency Department [address] [place] [address] Phone #: ext- [phone] 05/23/2021 19:35 ------- Patient: HECTOR FREDERICK Sex: F : 2000 Age: 20y Disposition: Discharged. Condition: good and stable.CLINICAL IMPRESSION Acute migraine headache.INSTRUCTIONS Do not work for two days. (return if worse or any new symptoms. Take all medications as previously instructed. You may take tylenol and motrin for pain.). Warnings: Further evaluation is necessary. GENERAL WARNINGS: Return or contact your physician immediately if your condition worsens or changes unexpectedly, if not improving as expected, or if other problems arise. Your Current Medications: Your current home medications have been reviewed. CONTINUE TAKING THE FOLLOWING MEDICATIONS: Omeprazole Oral : unknown dose. Follow-up: Follow up with your doctor Thursday even if well. Call for an appointment. Reason for referral: evaluation. Summary of care provided to patient via paper. Understanding of the discharge instructions verbalized by patient.(Electronically signed by Shashank Baer MD 05/24/2021 02:48) Name Value Range Interpretation Code Description Data Deedee rce(s) Supporting Document(s) ID Date Data Source [id number] 05/23/2021 11:55:00 PM EDT [facility] Name Value Range Interpretation Code Description Data Deedee rce(s) Supporting Document(s) Ethanol [Moles/volume] in Blood <10.0 MG/DL [facility] ALCOHOL % 0.00 % 0.00 - 0.01 [facility] *FOR MEDICAL PURPOSES ONLY * ID Date Data Source [id number] 05/23/2021 09:02:00 PM EDT [facility] Name Value Range Interpretation Code Description Data Deedee rce(s) Supporting Document(s) Magnesium [Mass/volume] in Serum or Plasma 2.1 MG/DL 1.7 - 2.2 [facility] ID Date Data Source [id number] 05/23/2021 09:02:00 PM EDT [facility] Name Value Range Interpretation Code Description Data Deedee rce(s) Supporting Document(s) COMPREHENSIVE METABOLIC PANEL [facility] COMPREHENSIVE METABOLIC PANEL Sodium [Moles/volume] in Serum or Plasma 139 mEq/L 134 - 153 [facility] Potassium [Moles/volume] in Serum or Plasma 3.8 mEq/L 3.6 - 5.0 [facility] Chloride [Moles/volume] in Serum or Plasma 103 mEq/L 98 - 107 [facility] Carbon dioxide, total [Moles/volume] in Serum or Plasma 25 MEQ/L 22 - 30 [facility] Glucose [Mass/volume] in Serum or Plasma 89 MG/DL 70 - 99 [facility] BUN 22 MG/DL 7 - [facility] Creatinine [Mass/volume] in Serum or Plasma 0.7 MG/DL 0.7 - 1.5 [facility] BUN/CREAT 31 8 - 27 H [facility] Protein [Mass/volume] in Serum or Plasma 6.8 G/DL 6.3 - 8.2 [facility] Albumin [Mass/volume] in Serum or Plasma 4.1 G/DL 3.9 - 5.0 [facility] Globulin [Mass/volume] in Serum by calculation 2.7 GM/DL 2.4 - 3.2 [facility] A/G RATIO 1.5 0.8 - 2.0 [facility] Calcium [Mass/volume] in Serum or Plasma 9.3 MG/DL 8.4 - 10.2 [facility] Bilirubin.total [Mass/volume] in Serum or Plasma <0.7 MG/DL 0.2 - 1.3 [facility] Alkaline phosphatase [Enzymatic activity/volume] in Serum or Plasma 114 U/L 38 - 126 [facility] Aspartate aminotransferase [Enzymatic activity/volume] in Serum or Plasma 15 U/L 5 - 40 [facility] Alanine aminotransferase [Enzymatic activity/volume] in Seru m or Plasma 16 U/L 7 - 56 [facility] Anion gap 3 in Serum or Plasma 11.0 mmol/L 8.0 - 16.0 [facility]GE 20 y[facility] GFR >60 mL/min [facility] AFR AMER GFR >60 mL/min [facility] Male GFR In terprentation 20-49 yrs >60 mL/min Normal 50-59 yrs >56 mL/min Normal 60-69 yrs >49 mL/min Normal 70-79yrs >42 mL/min Normal 80 and above >35 mL/min Normal Female GFR Interpretation 20-39 yrs >60 mL/min Normal 40-49 yrs >58 mL/min Normal 50-59 yrs >51 mL/min Normal 60-69 yrs >45 mL/min Normal 70-79 yrs >39 mL/min Normal 80 and above >32 mL/min Normal ID Date Data Source [id number] 05/23/2021 08:51:00 PM EDT [facility] Name Value Range Interpretation Code Description Data Deedee rce(s) Supporting Document(s) HCG SERUM QUAL NEGATIVE NORMAL: NEGATIVE [facility] HCG SERUM QL REENTER NEGATIVE NORMAL: NEGATIVE [facility] { KIT LOT # [id number] ){ KIT EXP DATE 09/20/22 ){ PROCEDURAL CONTROL VALID ) ID Date Data Source [id number] 05/23/2021 08:39:00 PM EDT [facility] Name Value Range Interpretation Code Description Data Deedee rce(s) Supporting Document(s) CBC W/AUTOMATED DIFF [facility] COMPLETE BLOOD COUNT Leukocytes [#/volume] in Blood by Automated count 7.6 10^3/uL 4.2 - 1 1.0 [facility] Erythrocytes [#/volume] in Blood by Automated count 4.24 10^6/uL 4. 20 - 5.40 [facility] Hemoglobin [Mass/volume] in Blood 12.6 g/dL 12.0 - 16.0 [facility] Hematocrit [Volume Fraction] of Blood by Automated count 38.3 % 3 7.0 - 47.0 [facility] Erythrocyte mean corpuscular volume [Entitic volume] by Auto mated count 90.3 fL 81.0 - 101 [facility] Erythrocyte mean corpuscular hemoglobin [Entitic mass] by Automated count 29.7 pg 27.0 - 34.0 [facility] Erythrocyte mean corpuscular hemoglobin concentration [Mass/volume] by Automated count 32.9 g/dL 31.0 - 36.0 [facility] Erythrocyte distribution width [Ratio] by Automated count 12.7 % 11.5 - 14.5 [facility] Platelets [#/volume] in Blood by Automated count 267 10^3/uL 150 - 45 0 [facility] Platelet mean volume [Entitic volume] in Blood by Automated count 10.0 fL 7.4 - 10.4 [facility] Neutrophils/100 leukocytes in Blood by Automated count 64.6 % 37. 0 - 80.0 [facility] Lymphocytes/100 leukocytes in Blood by Manual count 24.0 % 25.0 - 40.0 L [facility] Monocytes/100 leukocytes in Blood by Automated count 9.0 % 3.0 - 8.0 H [facility] Eosinophils/100 leukocytes in Blood by Automated count 1.3 % 0.0 - 7.0 [facility] Basophils/100 leukocytes in Blood by Automated count 0.7 % 0.0 - 2.5 [facility] %IG 0.4 % 0.0 - 0.0 [facility] %NRBC 0.0 % 0.0 - 0.0 [facility] al Neutrophils [#/volume] in Blood by Automated count 4.93 10^3/uL 2.00 - 6.90 [facility] Lymphocytes [#/volume] in Blood by Automated count 1.83 10^3/uL 0.60 - 3.40 [facility] Monocytes [#/volume] in Blood by Automated count 0.69 10^3/uL 0.00 - 0.90 [facility] Eosinophils [#/volume] in Blood by Automated count 0.10 10^3/uL 0.00 - 0.70 [facility] Basophils [#/volume] in Blood by Automated count 0.05 10^3/uL 0.00 - 0.20 [facility] #IG 0.03 10^3/uL 0.00 - 0.10 [facility] #NRBC 0.00 10^3/uL 0.00 - 0.00 [facility] MANUAL DIFF NOT INDICATED [facility] RBC MORPH NOT INDICATED [facility] ID Date Data Source [id number] 07/28/2020 12:00:00 AM EST [facility] Name Value Range Interpretation Code Description Data Deedee rce(s) Supporting Document(s) [facility]2 [facility] and reported by [facility]. Procedure Social History No Information
--- NOTE | 2021-07-20 01:08 | REPVR ---
PROCEDURE INFORMATION: Exam: XR Right Ankle Exam date and time: 07/20/2021 12:46 AM Age: 21 years old Clinical indication: Other: Hit by chair at work; Additional info: Hit with chair at work TECHNIQUE: Imaging protocol: XR Right ankle. Views: 3 or more views. COMPARISON: CR Foot, complete 11/30/2020 10:00 AM FINDINGS: Bones/joints: Normal osseous alignment. No acute fracture. No asymmetric ankle mortise widening. Fifth metatarsal base is intact. No osteochondral lesion of the talar dome. No evidence of osseous tarsal coalition. No concerning osseous lesion. Joint spaces are well maintained. Soft tissues: Anterolateral ankle soft tissue swelling is present. IMPRESSION: Anterolateral ankle soft tissue swelling. No evidence of acute fracture. Electronically signed by: Twin Earl On 07/20/2021 01:08:17 AM
[2021-07-20 04:05] VITALS: BP 129/92
--- OUTSIDE RECORDS SUMMARY | 2021-07-20 06:05 | CCD ---
Author Author [facility] Organization [facility] Address Unknown Phone Unavailable Care Team Providers Care Sales Service Executive Name Role Phone NO, PCP Unavailable Unavailable KEYUR, Pat ENCARNACION MD Unavailable Unavailable KEYUR, Pat ENCARNACION MD Unavailable Unavailable KEYUR, L SHASHANK MD Unavailable Unavailable KEYUR, Pat BERGA MD Unavailable Unavailable KEYUR, L SHASHANK MD [...] is protected by Article 27-F of the [place] Public [employer] law. If you continue you may have access to information: Regarding HIV / AIDS; Provided by facilities licensed or operated by the [place] [facility] Office of Mental Health; or Provided by the [facility] Office for People With Developmental Disabilities. If such information is present, then the following [facility] mandated warning applies: This information has [...] law may result in a fine or correction sentence or both. A general authorization for the release of medical or other information is NOT sufficient authorization for further disc losure. Allergies and Adverse Reactions Type Description Substance Reaction Status Data Source(s ) No Known Drug Allergies No Known Drug Allergies [facility] Encounters Encounter Providers Location Date Indications Data Source(s ) Emergency Attender: SHASHANK BAER MDConsultant: PCP NO 05/23/2021 07:36:00 PM EDT - 05/24/2021 02:48:[address] [facility] Patient discharged. Medications No Information Insurance Providers Payer name Policy type / Coverage type Policy ID Covered republican ID Covered republican's relationship to knott Policy Knott Plan Information Medicaid S [id number] S [id number] Managed Care - Community Plan [facility] P [id number] S [id number] [facility] P [id number] S [id number] [facility] ProductivityH[facility] [id number] SP [id number] [facility] [id number] S [id number] [facility] [id number] SP [id number] [facility] S UNAVAILABLE S UNAVAILABLE SELF PAY ONLY [id number] SP [id number] PRIVATE PAY [id number] [employer]ailored FitHARTFORD [id number] SP [id number] Problems, Conditions, and Diagnoses Code Display Name Description Problem Type Effective Dates Data Source(s) [id number] Nicotine dependence, other tobacco produ ct, uncomplicated Nicotine dependence, other tobacco product, uncomplicated Diagnosis 05/23 07:36:00 PM EDT [facility] [id number] Migraine, unspecified, not intractable, without status migrainosus Migraine, unspecified, not intractable, without status migrainosus Diagnosis 05/23/2021 07:36:00 PM EDT [facility] R519 Headache, unspecified Headache, unspecified Diagnosis 05/23/2021 07:36:00 PM [facility] Surgeries/Procedures No Information Results ID Date Data Source [id number] [facility]/25/[facility] 03:42[facility] [address] [place] [address] PHONE: [phone] FAX: [phone] Name .................. : OTONIEL Szymanski Acct Number.................. : [id number] ROOM. ................. : TR-08 MR Number ................... : [id number] Stay type ............. : E/R Discharge Date......... ... : 05/24/21 Admit Date ....... .. : 05/23/21 Admit Phys .................... : COONEYNORM Date of ....... : 2000 Family Phys ................... : NO PCP Phone .................. : [phone] Age ................................ : 20 Film# .................. .:[id number] Sex ................................. : F Unsigned transcriptions are preliminary reports and do not represent a medical or legal document CHEST PORTABLE [id number] COMPLETE:05/24/21 04:25 MWB 25446 Reason(s): Congestion PORTABLE CHEST SINGLE VIEW 12:25 [...] rce(s) Supporting Document(s) ID Date Data Source [id number] 05/25/2021 03:41:00 [place] [address] PHONE: [phone] FAX: [phone] Name .................. : OTONIEL Szymanski Acct Number.................. : [id number] ROOM. ................. : TR-08 MR Number ................... : [id number] Stay type ............. : E/R Discharge Date......... ... : Admit Date ......... : 05/23/21 Admit Phys .................... : KEYURNORM Date of ....... : 2000 Family Phys ................... : NO PCP Phone .................. : [phone] Age ................................ : 20 Film# .................. .:[id number] Sex ................................. : F Unsigned transcriptions are preliminary reports and do not represent a medical or legal document CT HEAD W/O CONTRAST [id number] COMPLETE:05/23/21 19:48 Reason(s): Headache CT BRAIN WITHOUT IV CONTRAST INDICATION: Headache COMPARISON: None CONTRAST: None Preliminary report for this exam was provided by [facility]. One or more of the following dose [...] 23:01, Dictation Date: Page [address] [facility] [address] [id number] PHONE: [phone] FAX: [phone] Name .................. : OTONIEL Szymanski Acct Number.................. : [id number] ROOM. ................. : TR-08 MR Number ................... : [id number] Stay type ............. : E/R Discharge Date......... ... : Admit Date ......... : 05/23/21 Admit Phys .................... : COONEYNORM Date of ....... : 2000 Family Phys ................... : NO PCP Phone .................. : [phone] Age ................................ : 20 Film# .................. .:[id number] Sex ................................. : F Unsigned transcriptions are preliminary reports and do not represent a medical or legal document CT HEAD W/O CONTRAST [id number] COMPLETE:05/23/21 19:48 Reason(s): Headache Copy for: EMERGENCY DEPT via mode Copy for: 710 MED REC DISCHARGED Page 2 of 2 Name Value Range Interpretation Code Description Data Deedee rce(s) Supporting Document(s) ID Date Data Source [id number] 05/23/2021 07:36:00 PM EDT [facility] 1 OrderSheet [facility] Emergency Department [address] [place] [address] Phone #: ext- [phone] 05/23/2021 19:35 Patient: HECTOR FREDERICK Sex: F [...] 00:08 05/24/2021 Shashank Baer MD; 05/24/2021 Laurie Ballard Laura R.N. RHonorioNHonorioDIAGNOSTIC STUDY ORDERSOrder Description Priority Entered Acknowledged InitialedCT Head W/O Cont STAT 19:48 05/23/2021 20:00 [place](Oxygen?(No)) Shashank Baer MD; Rey QUINONES Reason for Study: HeadacheChest Portable 1 STAT 00:03 05/24/2021 00:07 Crystal Ballard Norma MD; Laurie Witt(Oxygen?(No)) Reason for Study: Congestion 2 OrderSheet [facility] Emergency Department [address] [place] [address] Phone #: ext- [phone] 05/23/2021 19:35 [id number] Sex: F : 2000 Age: 20yMEDICATION/IV/DRIP/FLUID ORDERSOrder [...] rce(s) Supporting Document(s) ID Date Data Source [id number] 05/23/2021 07:36:00 PM EDT [facility] 1 Medication Reconciliation Report [facility] Emergency Department [address] [place] [address] Phone #: ext- [phone] 05/23/2021 19:35 Patient: [...] rce(s) Supporting Document(s) ID Date Data Source [id number] 05/23/2021 07:36:00 PM EDT [facility] 1 Medication Administration Record [facility] Emergency Department [address] [place] [address] Phone #: ext- [phone] 05/23/2021 19:35 Patient: HECTOR FREDERICK Sex: F : 2000 Age: 20yWeight: 158.7 kgHeight/Length: 71 inBMI: 48.8ALLERGIES: No Known Drug Allergy Date/Time Medication Administered Medication OrderedStart NS [IV] IV NS 1000 mL Bolus : Bolus 526254:12 05/23/2021 Dose: IV Fluids mL (X1)Glenroy Le RN Rate: 1000 mL/hr over 1 hour(s)---- Dispensed: 1000 mL bagStop Site: #1 left AC22:02 1PChari Regalado NS [IV] IV NS 1000 mL Bolus : Bolus 483678:02 05/23/2021 Dose: IV Fluids mL (X1)Glenroy Le [...] IV NS 1000 mL Bolus : Bolus 225479:10 05/23/2021 Dose: IV Fluids mL (X1)Myriam Rubio RNilesh Rate: 1000 mL/hr over 1 hour(s)---- Dispensed: 1000 mL bagStop Site: #1 left AC00:16 05/24/2021Laurie Ballard R.N.Start SODIUM CHLORIDE [IV] IV NS 1000 mL Bolus : Bolus 648527:17 05/24/2021 Dose: IV Fluids mL (X1)Laurie Ballard R.N. Rate: 1000 mL/hr over 1 hour(s)---- Dispensed: 1000 mL bagStop Site: #1 left AC 2 Medication Administration Record [facility] Emergency Department [address] [place] [address] Phone #: ext- [phone] 05/23/2021 19:35 Patient: HECTOR FREDERICK Sex: F : 2000 Age: 20y01:24 1LofMyriam barr R.N. Name Value Range Interpretation Code Description Data Deedee rce(s) Supporting Document(s) ID Date Data Source [id number] 05/23/2021 07:36:00 PM EDT [facility] 1 General Instructions [facility] Emergency Department [address] [place] [address] Phone #: ext- [phone] 05/23/2021 19:35 Patient: HECTOR FREDERICK Sex: F [...] or too much sleep. 2 General Instructions [facility] Emergency Department [address] [place] [address] Phone #: ext- [phone] 05/23/2021 19:35 Patient: [...] Avocados Bananas Figs Raisins 3 General Instructions [facility] Emergency Department [address] [place] [address] Phone #: ext- [phone] 05/23/2021 19:35 Patient: HECTOR FREDERICK [id number] Sex: F : 2000 Age: 20y Red [...] healthcare provider Stiff neck 4 General Instructions [facility] Emergency Department [address] [place] [address] Phone #: ext- [phone] 05/23/2021 19:35 Patient: HECTOR FREDERICK Sex: F : 2000 Age: 20y Extreme drowsiness, confusion, or fainting Dizziness, or dizziness with spinning sensation (vertigo) Weakness or trouble feeling in an arm or leg, or on one side of your face Trouble talking or seeing [phone] [employer]. [address] [place] [address]. All rights reserved. This information is not intended as asubstitute for professional medical care. Always follow your healthcare professional's instructions. You have been given the following additional information: Headache, Migraine, Classic Do not work for two days.(Electronically signed by Shashank Baer MD 05/24/2021 02:48) Name Value Range Interpretation Code Description Data Deedee rce(s) Supporting Document(s) ID Date Data Source [id number] 05/23/2021 07:36:00 PM EDT [facility] 1 Clinical Report - Nurses [facility] Emergency Department [address] [place] [address] Phone #: ext- [phone] 05/23/2021 19:35 Patient: [...] not gotten any better despite taking Advil).Treatment COMMUNITY SERVICE OFFICER:(advil 1730).SEPSIS SCREEN: SIRS SCREEN NEGATIVE. SEPSIS SCREEN [...] C testing 2 Clinical Report - Nurses [facility] Emergency Department [address] [place] [address] Phone #: ext- [phone] 05/23/2021 19:35 Patient: HECTOR FREDERICK Sex: F [...] 05/23/21 Glenroy Stewart Clinical Report - Nurses [facility] Emergency Department [address] [place] [address] Phone #: ext- [phone] 05/23/2021 19:35 Patient: HECTOR FREDERICK Sex: F [...] pain, redness, 4 Clinical Report - Nurses [facility] Emergency Department [address] [place] [address] Phone #: ext- [phone] 05/23/2021 19:35 Patient: HECTOR FREDERIKC Sex: F : 2000 Age: 20yor swelling. [...] room air. Pain level now:10/31. --23:48 05/23/21 yMriam Rubio R.N.Rounding: Pain: assessed pain level. Position: [...] site #1 Discontinued: infused. Total amount infused: 28174 mL. IVpatency established. IV site checked: no [...] respiratory distress. 5 Clinical Report - Nurses [facility] Emergency Department [address] [place] [address] Phone #: ext- [phone] 05/23/2021 19:35 Patient: HECTOR FREDERICK Sex: F [...] Patient verbalized understanding. Written instructions provided in Kazakh. The patient was discharged by the physician. She was discharged home. She left ambulatory and via private vehicle. [place] driving. --02:39 05/24/21 Myriam Rubio R.N. 02:38 05/24/21. BP: 98/62. MAP: 74. HR: 79. RR: 15. O2 saturation: 100%. Temp: 97.7 F (oral). Pain level now: 010. --02:39 05/24/21 Myriam Rubio R.N.Locked/Released at 05/24/2021 02:48 by Myriam Rubio R.N. Name Value Range Interpretation Code Description Data Deedee rce(s) Supporting Document(s) ID Date Data Source [id number] 05/23/2021 07:36:00 PM EDT [facility] 1 Clinical Report - Physicians/Mid Levels [facility] Emergency Department [address] [place] [address] Phone #: ext- [phone] 05/23/2021 19:35 Patient: HECTOR FREDERICK Sex: F [...] Allergy. 2 Clinical Report - Physicians/Mid Levels [facility] Emergency Department [address] [place] [address] Phone #: ext- [phone] 05/23/2021 19:35 Patient: [...] EKGLaboratory Tests: ETOH: (ERIN: 05/23/2021 19:56) ( [facility] 05/23/2021 23:55) Final results Test Result Flag Units (Reference) ALCOHOL <10.0 MG/DL ALCOHOL % 0.00 % (0.00 - 0.01) *FOR MEDICAL PURPOSES ONLY* CBC w Diff: (ERIN: 05/23/2021 19:56) ( [facility] 05/23/2021 20:39) Final results Test Result Flag Units (Reference) CBC W/AUTOMATED DIFF COMPLETE BLOOD COUNT WBC 7.6 10/uL (4.2 - 11.0) RBC 4.24 10/uL (4.20 - 5.40) 3 Clinical Report - Physicians/Mid Levels [facility] Emergency Department [address] [place] [address] Phone #: ext- [phone] 05/23/2021 19:35 Patient: HECTOR FREDERICK [id number] Sex: F : 2000 Age: 20y HEMOGLOBIN [...] Male GFR Interprentation 20-49 yrs >60 mL/min Aouqtt20-08 yrs >56 mL/min Normal 60- 69 yrs >49 mL/min Normal 70-79yrs>42 mL/min Normal 80 and above >35 mL/min Normal Female GFRInterpretation 20-39 yrs >60 mL/min Normal 40-49 yrs >58 mL/minNormal 50-59 yrs >51 mL/min Normal 60-69 yrs >45 mL/min Tqoceq15-66 yrs >39 mL/min Normal 80 and above >32 mL/min NormalBeta-HCG, Qual Serum: (ERIN: 05/23/2021 19:56) ( MsgRcvd 05/23/2021 20:52) Final results 4 Clinical Report - Physicians/Mid Levels [facility] Emergency Department [address] [place] [address] Phone #: ext- [phone] 05/23/2021 19:35 Patient: HECTOR FREDERICK Sex: F : 2000 Age: 20y Test Result Flag Units (Reference) HCG SERUM QUAL NEGATIVE (NORMAL: NEGAT HCG SERUM QL REENTER NEGATIVE (NORMAL: NEGAT { KIT LOT # [id number] ){ KIT EXP DATE09/20/22 ){ PROCEDURAL CONTROL VALID)Magnesium: (ERIN: 05/23/2021 19:56) ( MsgRcvd 05/23/2021 21:02) Final results Test Result Flag Units (Reference) MAGNESIUM 2.1 MG/DL (1.7 - 2.2)CT Head W/O Cont: (ERIN: 05/23/2021 19:48) ( MsgRcvd 05/23/2021 23:32) In Progress Exam [place] HEAD W/[place] [address] PHONE: [phone] FAX: [phone] Name .................. : OTONIEL Szymanski Acct Number.................. : [id number] ROOM. ................. : TR08 MR Number ................... : [id number] Stay type ............. : E/R Discharge Date......... ... : Admit Date ......... : 05/23/21 Admit Phys .................... : COONEYNORM Date of ....... : 2000 Family Phys ................... : NO PCP Phone ....... ........... : [phone] Age ................................ : 20 Film# .................. .:[id number] Sex ................................. : F Unsigned transcriptions are preliminary reports and do not represent a medical or legal document CT HEAD W/O CONTRAST [id number] COMPLETE:05/23/21 19:48 Reason(s): Headache CT BRAIN WITHOUT IV CONTRAST INDICATION: Headache COMPARISON: None CONTRAST: None Preliminary report for this exam was provided by [facility]. One or more of the following dose [...] study. 5 Clinical Report - Physicians/Mid Levels [facility] Emergency Department [address] [place] [address] Phone #: ext- [phone] 05/23/2021 19:35 Patient: HECTOR FREDERICK Sex: F : 2000 Age: 20y Electronically Reviewed and Signed By DCTJABIER , SIGNDATE, SCB Transcribe Initials: CHERRI , Transcribe Date: 05/23/21 23:01, Dictation Date: Page 1 of [address] [place] [address] PHONE: [phone] FAX: Name .................. : OTONIEL Szymanski Acct Number.................. : [id number] ROOM. ................. : [facility] MR Number ................... : [id number] Stay type ............. : E/R Discharge Date......... ... : Admit Date ......... : 05/23/21 Admit Phys .................... : COONEYNORM Date of ....... : 2000 Family Phys ................... : NO PCP Phone .................. : [phone] Age .......... ...................... : 20 Film# .................. .:[id number] Sex ................................. : F Unsigned transcriptions are preliminary reports and do not represent a medical or legal document CT HEAD W/O CONTRAST [id number] COMPLETE:05/23/21 19:48 Reason(s): Headache <<REPDIST>> Page 2 [...] counseled. 6 Clinical Report - Physicians/Mid Levels [facility] Emergency Department [address] [place] [address] Phone #: ext- [phone] 05/23/2021 19:35 ------- [...] rce(s) Supporting Document(s) ID Date Data Source [id number] 05/23/2021 11:55:00 PM EDT [facility] Name Value Range Interpretation Code Description Data Deedee rce(s) Supporting Document(s) Ethanol [Moles/volume] in Blood <10.0 MG/DL [facility] ALCOHOL % 0.00 % 0.00 - 0.01 [facility] *FOR MEDICAL PURPOSES ONLY * ID Date Data Source [id number] 05/23/2021 09:02:00 PM EDT [facility] Name Value Range Interpretation Code Description Data Deedee rce(s) Supporting Document(s) Magnesium [Mass/volume] in Serum or Plasma 2.1 MG/DL 1.7 - 2.2 [facility] ID Date Data Source [id number] 05/23/2021 09:02:00 PM EDT [facility] Name Value Range Interpretation Code Description Data Deedee rce(s) Supporting Document(s) COMPREHENSIVE METABOLIC PANEL [facility] COMPREHENSIVE METABOLIC PANEL Sodium [Moles/volume] in Serum or Plasma 139 mEq/L 134 - 153 [facility] Potassium [Moles/volume] in Serum or Plasma 3.8 mEq/L 3.6 - 5.0 [facility] Chloride [Moles/volume] in Serum or Plasma 103 mEq/L 98 - 107 [facility] Carbon dioxide, total [Moles/volume] in Serum or Plasma 25 MEQ/L 22 - 30 [facility] Glucose [Mass/volume] in Serum or Plasma 89 MG/DL 70 - 99 [facility] BUN 22 MG/DL 7 - 21 [facility] Creatinine [Mass/volume] in Serum or Plasma 0.7 MG/DL 0.7 - 1.5 [facility] BUN/CREAT 31 8 - 27 H [facility] Protein [Mass/volume] in Serum or Plasma 6.8 G/DL 6.3 - 8.2 [facility] Albumin [Mass/volume] in Serum or Plasma 4.1 G/DL 3.9 - 5.0 [facility] Globulin [Mass/volume] in Serum by calculation 2.7 GM/DL 2.4 - 3.2 [facility] A/G RATIO 1.5 0.8 - 2.0 [facility] Calcium [Mass/volume] in Serum or Plasma 9.3 MG/DL 8.4 - 10.2 [facility] Bilirubin.total [Mass/volume] in Serum or Plasma <0.7 MG/DL 0.2 - 1.3 [facility] Alkaline phosphatase [Enzymatic activity/volume] in Serum or Plasma 114 U/L 38 - 126 [facility] Aspartate aminotransferase [Enzymatic activity/volume] in Serum or Plasma 15 U/L 5 - 40 [facility] Alanine aminotransferase [Enzymatic activity/volume] in Seru m or Plasma 16 U/L 7 - 56 [facility] Anion gap 3 in Serum or Plasma 11.0 mmol/L 8.0 - 16.0 [facility]GE 20 yrs [facility] NON-AA GFR >60 mL/min [facility] AFR AMER GFR >60 mL/min [facility] sp[facility] Male GFR In terprentation 20-49 [...] >32 mL/min Normal ID Date Data Source [id number] 05/23/2021 08:51:00 PM EDT [facility] Name Value Range Interpretation Code Description Data Deedee rce(s) Supporting Document(s) HCG SERUM QUAL NEGATIVE NORMAL: NEGATIVE [facility] HCG SERUM QL REENTER NEGATIVE NORMAL: NEGATIVE [facility] { KIT LOT # [id number] ){ KIT EXP DATE 09/20/22 ){ PROCEDURAL CONTROL VALID ) ID Date Data Source [id number] 05/23/2021 08:39:00 PM EDT [facility] Name Value Range Interpretation Code Description Data Deedee rce(s) Supporting Document(s) CBC W/AUTOMATED DIFF [facility] COMPLETE BLOOD COUNT Leukocytes [#/volume] in Blood by Automated count 7.6 10^3/uL 4.2 - 1 1.0 [facility] Erythrocytes [#/volume] in Blood by Automated count 4.24 10^6/uL 4. 20 - 5.40 [facility] Hemoglobin [Mass/volume] in Blood 12.6 g/dL 12.0 - 16.0 [facility] Hematocrit [Volume Fraction] of Blood by Automated count 38.3 % 3 7.0 - 47.0 [facility] Erythrocyte mean corpuscular volume [Entitic volume] by Auto mated count 90.3 fL 81.0 - 101 [facility] Erythrocyte mean corpuscular hemoglobin [Entitic mass] by Automated count 29.7 pg 27.0 - 34.0 [facility] Erythrocyte mean corpuscular hemoglobin concentration [Mass/volume] by Automated count 32.9 g/dL 31.0 - 36.0 [facility] Erythrocyte distribution width [Ratio] by Automated count 12.7 % 11.5 - 14.5 [facility] Platelets [#/volume] in Blood by Automated count 267 10^3/uL 150 - 45 0 [facility] Platelet mean volume [Entitic volume] in Blood by Automated count 10.0 fL 7.4 - 10.4 [facility] Neutrophils/100 leukocytes in Blood by Automated count 64.6 % 37. 0 - 80.0 [facility] Lymphocytes/100 leukocytes in Blood by Manual count 24.0 % 25.0 - 40.0 L [facility] Monocytes/100 leukocytes in Blood by Automated count 9.0 % 3.0 - 8.0 H [facility] Eosinophils/100 leukocytes in Blood by Automated count 1.3 % 0.0 - 7.0 [facility] Basophils/100 leukocytes in Blood by Automated count 0.7 % 0.0 - 2.5 [facility] %IG 0.4 % 0.0 - 0.0 [facility] %NRBC 0.0 % 0.0 - 0.0 [facility] al Neutrophils [#/volume] in Blood by Automated count 4.93 10^3/uL 2.00 - 6.90 [facility] Lymphocytes [#/volume] in Blood by Automated count 1.83 10^3/uL 0.60 - 3.40 [facility] Monocytes [#/volume] in Blood by Automated count 0.69 10^3/uL 0.00 - 0.90 [facility] Eosinophils [#/volume] in Blood by Automated count 0.10 10^3/uL 0.00 - 0.70 [facility] Basophils [#/volume] in Blood by Automated count 0.05 10^3/uL 0.00 - 0.20 [facility] #IG 0.03 10^3/uL 0.00 - 0.10 [facility] ospital #NRBC 0.00 10^3/uL 0.00 - 0.00 [facility]ital MANUAL DIFF NOT INDICATED [facility] RBC MORPH NOT INDICATED [facility] ID Date Data Source [id number] 07/28/2020 12:00:00 AM EST [facility] Name Value Range Interpretation Code Description Data Deedee rce(s) Supporting Document(s) SARS-CoV2 Rapid Antigen [facility] and reported by [facility]. Procedure Social History No Information
--- NOTE | 2021-07-20 08:55 | REP ---
INDICATION: R foot pain s/p trauma to R ankle. COMPARISON: Right foot, 11/30/2020 TECHNIQUE: Four views of the right foot were obtained. FINDINGS: There is no evidence of fracture or dislocation. There is no degenerative joint disease. There is soft tissue swelling about the ankle. There are no soft tissue calcifications or radiopaque foreign bodies. IMPRESSION: Soft tissue swelling about the ankle consistent with an ankle sprain. <Electronically signed by Reinaldo Rivas > 07/20/21 [id number]
== END 2021-07-20 09:22 | disposition home or self-care (01) ==
LOC: M ED 23:05
DX: S93.401A Sprain of unspecified ligament of right ankle, initial encounter (principal); S90.511A Abrasion, right ankle, initial encounter; S90.01XA Contusion of right ankle, initial encounter; W22.8XXA Striking against or struck by other objects, initial encounter; Y92.89 Other specified places as the place of occurrence of the external cause; Y93.89 Activity, other specified; Y99.0 Civilian activity done for income or pay; Z87.81 Personal history of (healed) traumatic fracture; K21.9 Gastro-esophageal reflux disease without esophagitis; F17.200 Nicotine dependence, unspecified, uncomplicated; E66.9 Obesity, unspecified; Z79.899 Other long term (current) drug therapy

== ENCOUNTER 2021-09-14 20:24 | Emergency (ER) | payer OTHER ==
[~2021-09-14] VITALS: Ht 180.3 cm; Wt 113.6 kg
[2021-09-14 20:25] VITALS: BP 124/72
[2021-09-14] MEDS ORDERED: ACETAMINOPHEN 325 MG TAB PO ONE (22:20)
--- NOTE | 2021-09-15 08:19 | REP ---
INDICATION: fall COMPARISON: None. TECHNIQUE: AP and lateral views right forearm. FINDINGS: The osseous structures and joint spaces are intact and normal. There is no evidence for acute fracture or dislocation. Surrounding soft tissues are unremarkable. No subcutaneous emphysema or radiodense foreign body. IMPRESSION: No acute fracture or dislocation. <Electronically signed by Gopi Sharif > 09/15/21 [id number]
== END 2021-09-14 22:42 | disposition home or self-care (01) ==
LOC: M ED 20:24
DX: S50.00XA Contusion of unspecified elbow, initial encounter (principal); W00.9XXA Unspecified fall due to ice and snow, initial encounter; Y92.89 Other specified places as the place of occurrence of the external cause; Y93.89 Activity, other specified; Y99.8 Other external cause status; M54.2 Cervicalgia; Z79.899 Other long term (current) drug therapy

== ENCOUNTER 2023-05-12 22:28 | Inpatient (IN) | payer OTHER, SELFPAY ==
[~2023-05-12] VITALS: Ht 180.3 cm; Wt 126.4 kg
[2023-05-12 23:28] LABS: HEMOGLOBIN 14.3 g/dl (12.0-15.5); MEAN CORPUSCULAR HEMOGLOBIN 30.5 pg (27.0-33.0); MEAN CORPUSCULAR HGB CONC 33.3 g/dl (32.0-36.5); MEAN CORPUSCULAR VOLUME 91.7 fl (80.0-96.0); PLATELET COUNT, AUTOMATED 262 10^3/uL (150-450); RED BLOOD COUNT 4.69 10^6/uL (4.00-5.40); WHITE BLOOD COUNT 7.2 10^3/uL (4.0-10.0)
[2023-05-12 23:43] LABS: ETHYL ALCOHOL (ETHANOL) 0.003 % (0.000-0.010)
[2023-05-12 23:44] LABS: ACETAMINOPHEN LEVEL < 2.0 UG/ML (10.0-20.0); ALBUMIN 3.8 G/DL (3.2-5.2); ALKALINE PHOSPHATASE 134 U/L (46-116); ALT/SGPT 32 U/L (7.0-40); AST/SGOT 11 U/L (<34); BILIRUBIN,DIRECT 0.1 MG/DL (<0.4); BILIRUBIN,TOTAL 0.3 MG/DL (0.3-1.2); BLOOD UREA NITROGEN 14 MG/DL (9-23); CALCIUM LEVEL 9.1 MG/DL (8.5-10.1); CARBON DIOXIDE LEVEL 25 MMOL/L (20-31); CHLORIDE LEVEL 106 MMOL/L (98-107); GLOMERULAR FILTRATION RATE > 60.0 (>60); GLUCOSE, FASTING 92 MG/DL (60-100); POTASSIUM SERUM 3.8 MMOL/L (3.5-5.1); SALICYLATE LEVEL < 3.0 MG/DL (<30); SODIUM LEVEL 140 MMOL/L (136-145); TOTAL PROTEIN 7.1 G/DL (5.7-8.2)
[2023-05-12 23:47] LABS: THYROID STIMULATING HORMONE 5.221 uIU/ML (0.55-4.78)
[2023-05-12 23:49] LABS: HCG, SERUM QUALITATIVE NEGATIVE (NEGATIVE)
[2023-05-13 00:18] LABS: AMPHETAMINES LEVEL URINE NEGATIVE (NEGATIVE)
[2023-05-13 00:19] LABS: BARBITURATES URINE NEGATIVE (NEGATIVE); BENZODIAZEPINES URINE NEGATIVE (NEGATIVE); CANNABINOIDS URINE NEGATIVE (NEGATIVE); COCAINE METABOLITE URINE NEGATIVE (NEGATIVE); METHADONE URINE NEGATIVE (NEGATIVE); OPIATES URINE NEGATIVE (NEGATIVE); PHENCYCLIDINE URINE NEGATIVE (NEGATIVE)
[2023-05-13] MEDS ORDERED: LORazepam 1 MG TAB PO ONE (01:00)
[2023-05-13] MEDS ORDERED: HOME MED LIST COMPLETE! XX SCH (01:55)
[2023-05-13] MEDS ORDERED: MAALOX 30 ML SUSP *UDC PO PRN (21:30)
[2023-05-13] MEDS ORDERED: traZODone 50 MG TAB PO PRN (21:30)
[2023-05-13] MEDS ORDERED: IBUPROFEN 400MG TAB PO PRN (21:30)
[2023-05-13] MEDS ORDERED: NICOTINE 21MG/24HR 1 EA TRANSDERMAL TD PRN (21:30)
[2023-05-13] MEDS ORDERED: diphenhydrAMINE 25MG CAP PO PRN (21:30)
[2023-05-13] MEDS ORDERED: ACETAMINOPHEN TAB 650MG DOSE (2X325MG) PO PRN (21:30)
[2023-05-13] MEDS ORDERED: MOM 30ML SUSPENSION UDC PO PRN (21:30)
[2023-05-14 00:22] VITALS: BP 114/75; TEMP 97.5; O2SAT 98
[2023-05-14 06:57] VITALS: BP 121/65; TEMP 98; O2SAT 97
[2023-05-14] MEDS ORDERED: hydrOXYzine 50 MG TAB PO PRN (10:15)
[2023-05-14] MEDS: NICOTINE POLACRILEX 2 MG GUM PO PRN ×2 (10:47→20:32)
[2023-05-14] MEDS: buPROPion 100 MG TAB PO SCH (12:40)
[2023-05-14] MEDS: PILL CUTTER 1 EACH XX PRN (12:40)
[2023-05-14 17:55] VITALS: BP 125/75; TEMP 97.6; O2SAT 100
[2023-05-15 06:39] VITALS: BP 134/79; TEMP 97.7; O2SAT 98
[2023-05-15] MEDS: PILL CUTTER 1 EACH XX PRN (08:35)
[2023-05-15] MEDS: buPROPion 100 MG TAB PO SCH (08:35)
[2023-05-15] MEDS ORDERED: TRAZ-252 PO (09:38)
[2023-05-15] MEDS ORDERED: BUPR-69 PO (09:38)
[2023-05-15] MEDS ORDERED: HYDR50TA70 PO (09:38)
[2023-05-15] MEDS ORDERED: NICO2GUM PO (09:38)
== END 2023-05-15 12:27 | disposition home or self-care (01) | DRG 751 ==
LOC: M ED 22:28 → M ED INP 05-13 21:29 → M PSY 05-13 23:57
PROVIDERS: ADMIT Psychiatry & Neurology Psychiatry; ATTEND Student in an Organized Health Care Education/Training Program
DX: F32.1 Major depressive disorder, single episode, moderate (principal); F41.9 Anxiety disorder, unspecified; F17.290 Nicotine dependence, other tobacco product, uncomplicated; F42.9 Obsessive-compulsive disorder, unspecified; F90.9 Attention-deficit hyperactivity disorder, unspecified type; R45.851 Suicidal ideations; K21.9 Gastro-esophageal reflux disease without esophagitis; G40.909 Epilepsy, unspecified, not intractable, without status epilepticus; Z90.49 Acquired absence of other specified parts of digestive tract; Z20.822 Contact with and (suspected) exposure to COVID-19

== ENCOUNTER → 2023-06-23 | Outpatient (REF) | payer OTHER, MEDICAID ==
[~2023-06-23] MED LIST changes: +BUPR-69 PO; +HYDR50TA70 PO; +NICO2GUM PO; +TRAZ-252 PO
[2023-06-23 17:38] LABS: THYROID STIMULATING HORMONE 2.733 uIU/ML (0.55-4.78)
[2023-06-23 17:48] LABS: HEMOGLOBIN A1c 5.2 % (4.0-6.0)
[2023-06-23 18:03] LABS: BLOOD UREA NITROGEN 16 MG/DL (9-23); CALCIUM LEVEL 9.3 MG/DL (8.5-10.1); CARBON DIOXIDE LEVEL 28 MMOL/L (20-31); CHLORIDE LEVEL 107 MMOL/L (98-107); CHOLESTEROL LEVEL 168 MG/DL (<200); CHOLESTEROL RISK RATIO 3.76 (<5); CREATININE FOR GFR 0.83 MG/DL (0.55-1.30); GLOMERULAR FILTRATION RATE > 60.0 (>60); GLUCOSE, FASTING 87 MG/DL (60-100); HDL CHOLESTEROL 44.6 MG/DL (>40); LDL CHOLESTEROL 103.2 MG/DL (<100); NON-HDL-C 123.4 MG/DL; POTASSIUM SERUM 4.3 MMOL/L (3.5-5.1); SODIUM LEVEL 139 MMOL/L (136-145); TRIGLYCERIDES LEVEL 101 MG/DL (<150)
== END ==
LOC: M LAB REF 16:32
PROVIDERS: ATTEND Nurse Practitioner Family
DX: R51.9 Headache, unspecified (principal); E66.3 Overweight; E55.9 Vitamin D deficiency, unspecified; Z11.9 Encounter for screening for infectious and parasitic diseases, unspecified; R53.83 Other fatigue

== ENCOUNTER → 2023-12-07 | Outpatient (CLI) | payer OTHER | LOC: M RAD 11:01 | PROVIDERS: ATTEND Nurse Practitioner Family | DX: N92.6 Irregular menstruation, unspecified (principal); N94.89 Other specified conditions associated with female genital organs and menstrual cycle; N88.8 Other specified noninflammatory disorders of cervix uteri; R93.89 Abnormal findings on diagnostic imaging of other specified body structures; N83.8 Other noninflammatory disorders of ovary, fallopian tube and broad ligament ==

== ENCOUNTER → 2024-02-26 | Outpatient (CLI) | payer OTHER ==
[~2024-02-26] MED LIST changes: +SERT-141 PO
[2024-02-26 14:36] LABS: THYROID STIMULATING HORMONE 2.279 uIU/ML (0.55-4.78)
[2024-02-26 14:37] LABS: LUTEINIZING HORMONE 8.4 mIU/ML; PROLACTIN 8.83 NG/ML
[2024-02-26 14:38] LABS: ESTRADIOL 40.2 PG/ML
[2024-02-26 14:40] LABS: FREE T4 0.92 NG/DL (0.89-1.76)
== END ==
LOC: M PLALAB 09:15
PROVIDERS: ATTEND Obstetrics & Gynecology
DX: N91.5 Oligomenorrhea, unspecified (principal)

== ENCOUNTER 2024-03-11 12:17 | Day surgery (SDC) | payer OTHER ==
[~2024-03-11] VITALS: Ht 180.3 cm; Wt 127.0 kg
[2024-03-11] MEDS ORDERED: LR 1,000 ML IV SCH (12:35)
[2024-03-11 12:56] LABS: HEMATOCRIT 41.6 % (36.0-47.0); HEMOGLOBIN 13.9 g/dl (12.0-15.5); MEAN CORPUSCULAR HEMOGLOBIN 30.3 pg (27.0-33.0); MEAN CORPUSCULAR HGB CONC 33.4 g/dl (32.0-36.5); MEAN CORPUSCULAR VOLUME 90.8 fl (80.0-96.0); PLATELET COUNT, AUTOMATED 263 10^3/uL (150-450); RED BLOOD COUNT 4.58 10^6/uL (4.00-5.40); WHITE BLOOD COUNT 5.9 10^3/uL (4.0-10.0)
[2024-03-11] MEDS ORDERED: MIDAZOLAM INJ 2MG/2ML VIAL As Ordered ONE (13:34)
[2024-03-11] MEDS ORDERED: ONDANSETRON 4MG 2ML VIAL As Ordered ONE (13:34)
[2024-03-11] MEDS ORDERED: KETOROLAC 60MG 2ML VIAL As Ordered ONE (13:34)
[2024-03-11] MEDS ORDERED: LIDOCAINE 2% 100MG/5ML SDV (FOR ANES.) As Ordered ONE (13:34)
[2024-03-11] MEDS ORDERED: propofoL 200 MG/20 ML VIAL As Ordered ONE (13:34)
[2024-03-11] MEDS ORDERED: fentaNYL 100 MCG/2 ML INJECTION As Ordered ONE (13:34)
[2024-03-11] MEDS ORDERED: ACETAMINOPHEN 1000MG 100ML IV BAG As Ordered ONE (15:08)
[2024-03-11 16:06] VITALS: BP 109/69; TEMP 96.8; O2SAT 98
== END 2024-03-11 16:10 | disposition home or self-care (01) ==
LOC: M SDC 12:17
PROVIDERS: ATTEND Obstetrics & Gynecology
DX: N93.9 Abnormal uterine and vaginal bleeding, unspecified (principal); R93.41 Abnormal radiologic findings on diagnostic imaging of renal pelvis, ureter, or bladder; K21.9 Gastro-esophageal reflux disease without esophagitis; G43.909 Migraine, unspecified, not intractable, without status migrainosus; F17.200 Nicotine dependence, unspecified, uncomplicated; Z79.899 Other long term (current) drug therapy
CPT/HCPCS: 36415; 58558; 81025; 85027; 86850; 86900; 86901; 88305; J0131; J0665; J1885; J2250; J2405; J3010

== ENCOUNTER → 2024-09-07 | Outpatient (CLI) | payer OTHER ==
[2024-09-07 12:35] LABS: ALBUMIN 3.5 G/DL (3.2-5.2); ALKALINE PHOSPHATASE 131 U/L (35-104); ALT/SGPT 32 U/L (7.0-40); AST/SGOT 20 U/L (<34); BILIRUBIN,TOTAL 0.4 MG/DL (0.3-1.2); BLOOD UREA NITROGEN 15 MG/DL (9-23); CALCIUM LEVEL 9.3 MG/DL (8.5-10.1); CARBON DIOXIDE LEVEL 28 MMOL/L (20-31); CHLORIDE LEVEL 106 MMOL/L (98-107); CHOLESTEROL LEVEL 196 MG/DL (<200); CHOLESTEROL RISK RATIO 3.77 (<5); CREATININE FOR GFR 0.71 MG/DL (0.55-1.30); GLOMERULAR FILTRATION RATE > 60.0 (>60); GLUCOSE, FASTING 96 MG/DL (60-100); HDL CHOLESTEROL 51.9 MG/DL (>40); LDL CHOLESTEROL 118.9 MG/DL (<100); NON-HDL-C 144.1 MG/DL; POTASSIUM SERUM 4.3 MMOL/L (3.5-5.1); SODIUM LEVEL 141 MMOL/L (136-145); THYROID STIMULATING HORMONE 1.967 uIU/ML (0.55-4.78); TOTAL PROTEIN 7.3 G/DL (5.7-8.2); TRIGLYCERIDES LEVEL 126 MG/DL (<150)
[2024-09-07 12:36] LABS: TESTOSTERONE 47 NG/DL (14-76)
[2024-09-07 12:38] LABS: CORTISOL AM 9.5 UG/DL (4.3-22.4)
== END ==
LOC: M WUC 08:07
PROVIDERS: ATTEND Nurse Practitioner Family
DX: E28.2 Polycystic ovarian syndrome (principal)

== ENCOUNTER → 2024-12-02 | Outpatient (REF) | payer OTHER ==
[2024-12-02 15:35] LABS: CHOLESTEROL RISK RATIO 3.83 (<5); LDL CHOLESTEROL 108.4 MG/DL (<100)
[2024-12-02 15:58] LABS: HEMOGLOBIN A1c 5.4 % (4.0-6.0)
== END ==
LOC: M LAB REF 12:35
PROVIDERS: ATTEND Nurse Practitioner Family
DX: E66.9 Obesity, unspecified (principal)